=== PATIENT | male | born 1970 | race Caucasian/White ===

== ENCOUNTER 2018-07-16 21:52 | Inpatient (IN) | payer OTHER ==
[~2018-07-16] VITALS: Ht 160 cm; Wt 56.7 kg
[2018-07-16 21:52] VITALS: BP 70/37
--- NOTE | 2018-07-16 21:52 | NUR ---
[facility] IN [facility] TO BED #10.
[2018-07-16] MEDS ORDERED: NACL 0.9% 1,000 ML IV ONE ×2 (21:53→23:15)
--- NOTE | 2018-07-16 21:53 | NUR ---
PT PRESENTED ER WITH C/O PAIN, BODY ACHES X 1 DAY. PT STATED HE HAD SYNCOPE EPISODE DURING DIALYIS TODAY. PT HAS GENERAL WEAKNESS AND IS SLOWER THAN NORMAL PER FAMILY. PT HAS A SHUNT ON RIGHT LEG. AND OLD SHUNT ON THE LEFT ARM. PT HAS A TEMP OF 100.0 AT THIS TIME. 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 PT IS A/O X 4. PT HAS [place]. PT IS INCONTINENT OF STOOL AND IS ANURIC. PAIN LEVEL IS 10/10 AT THIS TIME. SKIN IS PINK/WARM/DRY; VSS; PATIENT POSITIONED FOR COMFORT; HOB ELEVATED; BEDRAILS UP X2; BED DOWN. ER MD MADE AWARE OF PT STATUS.
[2018-07-16] MEDS ORDERED: ACETAMINOPHEN 325 MG TAB PO ONE (21:55)
--- NOTE | 2018-07-16 22:05 | NUR ---
PT SITTING UP IN BED, MONITORING TEMP AND VITALS STABLE. FAMILY AT BEDSIDE.
[2018-07-16 22:46] LABS: HEMATOCRIT 28.7 % (36-52); HEMOGLOBIN 9.6 g/dL (12.0-18.0); MEAN CORPUSCULAR HEMOGLOBIN 32 pg (27-31); MEAN CORPUSCULAR HGB CONC 34 g/dL (33-37); MEAN CORPUSCULAR VOLUME 95.4 fL (80-94); RED CELL DISTRIBUTION WIDTH 16.4 % (11.6-13.7); WHITE BLOOD COUNT (AUTO) 7.7 K/uL (4.8-10.8)
[2018-07-16 22:52] LABS: PROTHROMBIN TIME 10.9 secs (10.8-13.4)
[2018-07-16 22:53] LABS: ALBUMIN 2.8 g/dL (3.4-5.0); CARBON DIOXIDE 25.9 mmol/L (21-32); TOTAL BILIRUBIN 1.1 mg/dL (0.0-1.0)
[2018-07-16 23:01] LABS: LYMPHOCYTES % (MANUAL) 1 % (20-46); MONOCYTES % (MANUAL) 1 % (5-12); PLATELET COUNT (AUTO) 53 K/uL (140-450)
[2018-07-16 23:07] LABS: POTASSIUM 2.9 mmol/L (3.5-5.1)
[2018-07-16] MEDS ORDERED: PIPERACILLIN/TAZOBACTAM 3.375 GM in DEXTROSE 5% 50 ML IV ONE (23:10)
--- NOTE | 2018-07-16 23:20 | NUR ---
FLU CULTURE TAKEN. SENT TO LAB.
[2018-07-16] MEDS ORDERED: PIPERACILLIN/TAZOBACTAM 3.375 GM VIAL IV ONE (23:32)
--- NOTE | 2018-07-16 23:40 | NUR ---
PT HAD A BM, INCONTINENT. DIAPER WAS PUT ON PT PER REQUEST. PT TOLERATED WELL. SKIN INTACT. ER MADE KNOWN.
[2018-07-17] VITALS (57 sets, daily range): BP systolic 54–169; BP diastolic 21–99
--- NOTE | 2018-07-17 | NUR ---
PT SITTING UP IN BED, BP IS 75/20 AT THIS TIME. ER MD NOTIFED. FAMILY STATES PT BASELINE BP IS 80/40S.
[2018-07-17] MEDS ORDERED: VANCOMYCIN 1GM/DEXT 5% PREMIX 200 ML IV ONE (00:30)
[2018-07-17] MEDS ORDERED: fentaNYL 0.05 MG/ML VIAL IVP ONE (00:30)
[2018-07-17] MEDS ORDERED: VANCOMYCIN PER PHARMACY MC PRN ×2 (00:30→14:45)
[2018-07-17] MEDS ORDERED: NOREPINEPHRINE 8 MG in DEXTROSE 5% 250 ML IV PRN (00:30)
--- NOTE | 2018-07-17 00:38 | NUR ---
LEVOPHED AND VANCO NOT AVAILABLE IN ER [place], DARNELL SUP. NOTIFIED, WILL FOLLOW UP.
--- NOTE | 2018-07-17 00:40 | NUR ---
MONITORING BP, PT BP IS 80/41 AT THIS TIME. MEDICATIONS LEVOPHED IS IN, PT TOLERATED WELL.
[2018-07-17] MEDS ORDERED: NOREPINEPHRINE 4 MG/4 ML VIAL IV ONE ×2 (00:44→00:52)
[2018-07-17] MEDS ORDERED: VANCOMYCIN 1,000 MG VIAL ONE (00:49)
--- NOTE | 2018-07-17 00:54 | NUR ---
SPOKE TO ERICA FROM [facility] REGARDING ADMIT. PENDING ADMIT FOR PT. ER MADE AWARE
--- NOTE | 2018-07-17 00:59 | NUR ---
PT SITTING UP IN BED, BP IS 167/87, TITRATE LEVOPHED TO 2 MCQ/MIN. PT TOLERATED WELL. ER MD MADE KNOWN.
--- NOTE | 2018-07-17 01:04 | NUR ---
PT SITTING UP IN BED, BP AT 148/82 AT THIS TIME, ER MD MADE KNOWN WAITING FOR INSURANCE TO TRANSFER TO ICU.
--- NOTE | 2018-07-17 01:15 | NUR ---
PT DAUGHTER GARY MOORE [phone], [facility] [phone]
[2018-07-17] MEDS ORDERED: VANCOMYCIN 1,000 MG in DEXTROSE 5% 250 ML IV ONE (01:40)
[2018-07-17] MEDS ORDERED: ACETAMINOPHEN 325 MG TAB PO PRN (02:15)
[2018-07-17] MEDS ORDERED: DOCUSATE SODIUM 100 MG GELCAP PO PRN (02:15)
[2018-07-17] MEDS ORDERED: ONDANSETRON 4 MG/2 ML VIAL IM/IVP PRN (02:15)
[2018-07-17] MEDS ORDERED: NACL 0.9% 500 ML IV ONE (02:30)
--- NOTE | 2018-07-17 02:40 | NUR ---
Pt report given to CELIA KWOK. Transfer of care at this time.VITALS STABLE.
--- NOTE | 2018-07-17 02:40 | NUR ---
Patient will be admitted to care of DR. LARA. Admited to ICU. Will go to room2. Belongings list completed. Report to CELIA KWOK. VSS
[2018-07-17] MEDS ORDERED: METR250T2 PO (02:42)
[2018-07-17] MEDS ORDERED: KEP500 PO (02:42)
[2018-07-17] MEDS ORDERED: ONDA4TAB PO (02:42)
[2018-07-17] MEDS ORDERED: ZOLP5TAB1 PO (02:44)
--- NOTE | 2018-07-17 02:45 | NUR ---
RECEIVED PT FROM ER VIA [facility].MONITORS ATTACHED.SR ON MONITOR NOTED.WITH 02NC AT 2LPM.NO SOB NOTED.PT REFUSED O2; REMOVED.SATURATION 98%.W/PERIPHERAL IV TO LT EJ G20. INTACT INFUSING LEVOPHED 4MG IN 250ML D5W AT 2MCG/MIN(7.5ML/HR);BP 130/77; LEVOPHED ON HOLD AT THIS TIME.DR MONACO AT BEDSIDE AND AWARE.PERIPHERAL IV TO RT F/A G20 INFUSING ORDERED IVF.W/HEMODIALYSIS CATHETER TO RT FEMORAL, DRY AND INTACT DRESSING.W/LLE BKA; STUMP WITH OPEN WOUND,WOUND CULTURE SENT TO LAB, DRESSING DONE.PHOTO TAKEN.W/RLE AKA; STUMP ALSO HAS SMALL OPEN WOUND, SPEC SENT TO LAB FOR CULTURE.DRESSING AND PHOTO DONE.W/EXCORIATION TO PERINEAL AND SACROCOCCYGEAL AREA.PT HAS CHRONIC DIARRHEA.LT HAND W/THUMB AND RING FINGER AMPUTATION AND RT HAND INDEX, MIDDLE AND RING FINGER AMPUTEE AND LITTLE FINGER CONTRACTED.DENIES PAIN. Addendum: 07/17/18 at 0629 by Ashley Isaac RN BS CHECKED 173
[2018-07-17] MEDS ORDERED: PRO5 PO (02:47)
[2018-07-17] MEDS ORDERED: ATRO1TAB PO (02:47)
--- NOTE | 2018-07-17 03:15 | NUR ---
PT VERBALIZED HE IS HUNGRY; FOOD GIVEN.ATE 100%.PT ON RENAL DIET
[2018-07-17 03:29] LABS: FREE T4 (FREE THYROXINE) 1.27 ng/dL (0.76-1.46); MAGNESIUM 1.2 mg/dL (1.8-2.4); THYROID STIMULATING HORMONE 6.77 uIU/mL (0.34-3.74)
[2018-07-17] MEDS: NACL 0.9% 1,000 ML IV SCH ×3 (04:00→20:05)
[2018-07-17] MEDS ORDERED: MECLIZINE 25 MG TAB PO PRN (04:00)
[2018-07-17] MEDS ORDERED: KCL 20 MEQ/WATER INJ PREMIX 100 ML IV ONE (04:30)
[2018-07-17] MEDS ORDERED: MAG SULF 2000 MG/WATER PREMIX 50 ML IV ONE (04:30)
--- NOTE | 2018-07-17 05:00 | NUR ---
BM NOTED.LARGE AMT OF LOOSE BROWNISH STOOL; MORNING CARE DONE.PT REPOSITIONED FOR COMFORT.DENIES MARISSA.STILL ON ROOM AIR.TOLERATING.
--- NOTE | 2018-07-17 05:46 | NUR ---
PHONE CALL TO AFTER HOURS PHARMACY RE; [facility]; GIVEN IN ER AT 2352, FREQUENCY Q8HRS, SPOKE WITH PHARMACIST KAREN, HE SAID OK TO GIVE 5 AM DOSE; AWAITING LUNCH TRUCK DRIVER FOR THE ANTIBIOTIC.
[2018-07-17] MEDS ORDERED: PIPERACILLIN/TAZOBACTAM 2.25 GM VIAL IV ONE (06:00)
[2018-07-17] MEDS: PIPER/TAZO 2.25GM/D5W PREMIX 50 ML IV SCH ×3 (06:04→20:05)
--- NOTE | 2018-07-17 06:15 | NUR ---
PT TO CT FOR CT OF HEAD WITH RN BEVERLY WHELAN AND AUXILIARY EQUIPMENT OPERATOR.MONITORS ATTACHED.NO SOB ON ROOM AIR
[2018-07-17] MEDS ORDERED: DEXTROSE 50% 50 ML SYR IVP PRN (06:30)
--- NOTE | 2018-07-17 06:31 | NUR ---
PT BACK FROM CT IN STABLE CONDITION.BEDSIDE MONITORS REATTACHED.NO INCIDENT
--- NOTE | 2018-07-17 07:15 | NUR ---
REPORT GIVEN TO TAMIKO KWOK.PT AWAKE ALERT AND ORIENTED.
--- NOTE | 2018-07-17 07:15 | NUR ---
RECEIVED REPORT FROM [facility] NURSE FOR CONTINUITY OF CARE. PATIENT IS AWAKE, ALERT AND RESPONSIVE. ABLE TO MAKE HIS NEEDS KNOWN. ABLE TO FOLLOW SIMPLE COMMANDS. LEFT EJ AND RIGHT HAND PERIPHERAL IV PATENT AND INTACT. SKIN WARM TO TOUCH WNL, RIGHT AKA, LEFT BKA, RIGHT AND LEFT HAND DIGITS AMPUTATION, NO EDEMA NOTED. Addendum: 07/17/18 at 1140 by Anusha Abdalla RN CONTINUATION FOR 714 DOCUMENTATION: RIGHT HAND IST, 2ND AND 3RD DIGITS AND LEFT HAND 1ST AND 2ND DIGITS AMPUTATION. ANURIC. RIGHT FEMORAL DIALYSIS CATHETER PATENT AND INTACT. ON ROOM AIR. CALL LIGHT WITHIN REACH, BED AT LOWEST POSSIBLE POSITION. WILL CONTINUE TO MONITOR PATIENT.
[2018-07-17] MEDS ORDERED: BLOOD GLUCOSE MONITORING 1 DEV DEV FS SCH (07:30)
--- NOTE | 2018-07-17 07:55 | NUR ---
DR LARA AND GROUP ROUNDING ON THE PATIENT. WILL FOLLOW UP WITH ORDERS.
[2018-07-17] MEDS: NOREPINEPHRINE 4 MG in DEXTROSE 5% 250 ML IV PRN ×2 (08:01→20:44)
--- NOTE | 2018-07-17 08:01 | NUR ---
BP 61/27 MMHG. RECYCLED 3 TIMES. LEVOPHED RESTARTED AT 5 MCG/MIN. DR QUINN MADE AWARE. WITH ORDERS TO PLACE A CENTRAL LINE. CALLED PATIENT'S NIECE LEFT A MESSAGE. WILL AWAIT FOR CALL BACK. DR. QUINN AWARE.
--- NOTE | 2018-07-17 08:35 | NUR ---
WITH ORDERS FOR CENTRAL PLACEMENT. WILL HAVE KIT READY AT BEDSIDE. NO CALL BACK FROM NIECE STILL. WILL CALL AGAIN.
[2018-07-17] MEDS ORDERED: LORazepam 2 MG/ML VIAL IVP SCH (08:40)
--- NOTE | 2018-07-17 08:46 | NUR ---
PATIENT HAS BEEN SCREENED AND CATEGORIZED HIGH NUTRITION RISK. PATIENT WILL BE SEEN WITHIN 1-2 DAYS OF ADMISSION. 07/17/18-07/18/[address]
[2018-07-17] MEDS: SODIUM PHOS / POTASSIUM PHOS 1 PKT PDR PO SCH ×2 (09:00→20:04)
[2018-07-17] MEDS ORDERED: MIDODRINE 5 MG TAB PO SCH (09:00)
[2018-07-17] MEDS: levETIRAcetam 500 MG TAB PO SCH ×2 (09:00→20:04)
[2018-07-17] MEDS ORDERED: Z-GUARD PASTE TP PRN (09:00)
--- NOTE | 2018-07-17 09:05 | NUR ---
WOUND CARE EVALUATION PENDING. PT IS ON PROCEDURE WITH DR. QUINN.
--- NOTE | 2018-07-17 09:15 | NUR ---
NO CALL BACK FROM PATIENT'S NIECE STILL, DR QUINN MADE AWARE. SPOKE TO PATIENT IF HE IS ABLE TO SIGN CONSENT, HE STATED "I CAN'T SEE, MY NIECE CAN SIGN THE CONSENT". WILL PERFORM EMERGENT CENTRAL LINE PLACEMENT. PROCEDURE EXPLAINED TO PATIENT BY DR. QUINN, PATIENT ABLE TO VERBALIZE UNDERSTANDING BY STATING "I'M HERE, JUST DO WHATEVER YOU WANT TO DO."
[2018-07-17] MEDS: HYDROmorphone 1 MG/ML AMP IVP SCH ×2 (09:28→10:08)
--- NOTE | 2018-07-17 09:30 | NUR ---
CENTRAL LINE PLACEMENT UNDERGOING AT THIS TIME. TIMEOUT PERFORMED PRIOR TO PROCEDURE.
[2018-07-17] MEDS ORDERED: HYDROmorphone 1 MG/ML AMP IVP SCH ×2 (10:00→11:40)
--- NOTE | 2018-07-17 10:54 | NUR ---
RE-VISIT PT. PT IS STILL ON PROCEDURE WITH .
[2018-07-17] MEDS ORDERED: HYDROmorphone 1 MG/ML AMP ONE (11:17)
[2018-07-17] MEDS: BLOOD GLUCOSE MONITORING 1 DEV DEV FS SCH ×3 (11:30→21:00)
--- NOTE | 2018-07-17 11:30 | NUR ---
CENTRAL LINE PLACEMENT DONE, PATIENT TOLERATED PROCEDURE WELL.
--- NOTE | 2018-07-17 11:45 | NUR ---
X RAY AT BEDSIDE FOR CENTRAL LINE PLACEMENT VERIFICATION. PATIENT TOLERATED PROCEDURE WELL.
[2018-07-17] MEDS: Z-GUARD PASTE TP SCH (13:00)
[2018-07-17] MEDS ORDERED: HUMSLIDE SUBQ (13:40)
--- NOTE | 2018-07-17 13:40 | NUR ---
DR. QUINN MADE AWARE THAT MORNING MEDS WAS NOT GIVEN DUE TO CENTRAL LINE PLACEMENT PROCEDURE.
[2018-07-17] MEDS: MIDODRINE 5 MG TAB PO SCH ×2 (13:56→18:07)
[2018-07-17] MEDS: INSULIN LISPRO SLIDING SCALE 100 UNITS/ML VIAL SUBQ PRN ×2 (14:01→17:30)
--- NOTE | 2018-07-17 14:46 | NUR ---
07/17/18 RD INITIAL ASSESSMENT COMPLETED PLEASE REFER TO NUTRITION ASSESSMENT UNDER CARE ACTIVITY FOR ESTIMATED NUTRITIONAL NEEDS. 1. CONTINUE RENAL, CCHO 60 GM DIET WITH NEPRO CARB STEADY TOLERATED 2. RECOMMEND AMANDA SUPPLEMENT QD 3. PROVIDED NUTRITION EDUCATION FOR ESRD. 4. RD TO FOLLOW-UP 3-5 DAYS, MODERATE RISK ASHER HERNÁNDEZ RD
--- NOTE | 2018-07-17 19:20 | NUR ---
REPORT GIVEN TO INCOMING SHIFT FOR CONTINUITY OF CARE. PATIENT IN STABLE CONDITION.
--- NOTE | 2018-07-17 19:23 | NUR ---
RECEIVED REPORT FROM AM SHIFT. PT AO X4. HARD OF HEARING AND VISIONS. RESPONDS TO VERBAL AND TACTILE STIMULI. ABLE TO MAKE NEEDS KNOW. LUNG SOUNDS CLEAR. ON ROOM AIR. RENAL DIET. ABD SOFT NONDISTENDED. BS ACTIVE X [address]CT[address] BAG IN PL[address]. PT ANURIC. HD JANAEE SERGIO SAT TO L AV SHUNT. SINUS RHYTHM ON MONITOR. R FA IV SITE 20 G. SITE INTACT. LEFT IJ PICC SITE INTACT. ON LEVOPHED 3MCG/KG/MIN. RIGHT HAND DIGITS AMPUTATED. RIGHT BKA. LEFT AKA NOTED. BED IN LOWEST POSITION. CALL LIGHT WITH REACH. SIDE RAILS UP X 4. WILL CONTINUE TO MONITOR.
--- NOTE | 2018-07-17 19:30 | NUR ---
DR. MONACO AT BEDSIDE AT THIS TIME. UPDATED ON PATIENT'S CONDITION.
--- NOTE | 2018-07-17 19:30 | NUR ---
RECEIVED RESULT FOR US VENOUS BLE AT [address] INGE MONACO (RESIDENT) AT 1926, NO NEW ORDER RECEIVED.
[2018-07-17 19:36] LABS: ANION GAP 14.7 (8-16); CARBON DIOXIDE 24.6 mmol/L (21-32); POTASSIUM 3.3 mmol/L (3.5-5.1)
[2018-07-17 19:44] LABS: CREATININE 4.7 mg/dL (0.7-1.3)
[2018-07-17 20:07] LABS: HEMATOCRIT 30.5 % (36-52); HEMOGLOBIN 9.8 g/dL (12.0-18.0); MEAN CORPUSCULAR HEMOGLOBIN 31 pg (27-31); MEAN CORPUSCULAR HGB CONC 32 g/dL (33-37); MEAN CORPUSCULAR VOLUME 97.2 fL (80-94); PLATELET COUNT (AUTO) 71 K/uL (140-450); RED BLOOD CELL COUNT(AUTO) 3.14 MIL/uL (4.20-6.10); RED CELL DISTRIBUTION WIDTH 17.1 % (11.6-13.7); WHITE BLOOD COUNT (AUTO) 22.5 K/uL (4.8-10.8)
--- NOTE | 2018-07-17 20:12 | NUR ---
TITRATED DOWN LEVOPHED 4MCG AT THIS TIME
[2018-07-17 20:55] LABS: EOSINOPHILS % (MANUAL) 1 % (0-4); LYMPHOCYTES % (MANUAL) 9 % (20-46); MONOCYTES % (MANUAL) 1 % (5-12)
[2018-07-17] MEDS ORDERED: ZOLPIDEM 5 MG TAB PO PRN (21:00)
--- NOTE | 2018-07-17 22:14 | NUR ---
PT DISLODGED RECTAL TUBE AT THIS TIME. NEW ONE REINSERTED.
--- NOTE | 2018-07-17 23:17 | NUR ---
TITRATED DOWN LEVOPHED TO 2MCG. NO SIGNS OF ACUTE DISTRESS AT THIS TIME
[2018-07-18] VITALS (67 sets, daily range): BP systolic 70–156; BP diastolic 34–99
--- NOTE | 2018-07-18 00:18 | NUR ---
TITRATED LEVOPHED TO 1MCG. NO SIGNS OF ACUTE DISTRESS AT THIS TIME
--- NOTE | 2018-07-18 00:25 | NUR ---
PT HAD LARGE BM AT THIS TIME. STOOL LOOSE. RECTAL BAG DISLODGED.
--- NOTE | 2018-07-18 00:42 | NUR ---
SPOKE WITH BESSIE VEGA AND UPDATED ON PT'S CURRENT CONDITION. WILL UPDATE WHEN ANY ABRUPT CHANGES OCCUR.
[2018-07-18] MEDS ORDERED: NOREPINEPHRINE 4 MG/4 ML VIAL IV ONE (01:12)
[2018-07-18] MEDS: NOREPINEPHRINE 4 MG in DEXTROSE 5% 250 ML IV PRN (01:14)
--- NOTE | 2018-07-18 01:36 | NUR ---
PT DISLODGED RECTAL TUBE AT THIS TIME. PT REFUSES RECTAL TUBE IF REINSERTED.
--- NOTE | 2018-07-18 03:55 | NUR ---
TITRATED DOWN TO LEVOPHED 1MCG = 3.375ML/HR
[2018-07-18] MEDS: PIPER/TAZO 2.25GM/D5W PREMIX 50 ML IV SCH (04:30)
--- NOTE | 2018-07-18 05:37 | NUR ---
SPO2 NOT READING ON MONITOR. BORROWED PORTABLE MONITOR FROM RT. RESP 17 SPO2 100% ON ROOM AIR AT THIS TIME.
--- NOTE | 2018-07-18 06:09 | NUR ---
SPOKE WITH ELAN BURROUGHS REGARDING DIALYSIS TODAY.
--- NOTE | 2018-07-18 06:23 | NUR ---
DR. QUINN AT BEDSIDE AT THIS TIME. UPDATED ON PTS CURRENT CONDITION. WILL CONTINUE TO FOLLOW UP ANY ADDITIONAL ORDERS.
[2018-07-18] MEDS: BLOOD GLUCOSE MONITORING 1 DEV DEV FS SCH ×4 (06:33→20:29)
[2018-07-18 06:57] LABS: ANION GAP 14.9 (8-16); CARBON DIOXIDE 23.6 mmol/L (21-32); POTASSIUM 3.5 mmol/L (3.5-5.1)
[2018-07-18 07:00] LABS: CREATININE 5.1 mg/dL (0.7-1.3)
--- NOTE | 2018-07-18 07:24 | NUR ---
DR. IRBY NOTIFIED OF CREATINE 5.1. WILL FOLLOW UP ANY ADDITIONAL ORDERS.
--- NOTE | 2018-07-18 07:25 | NUR ---
ENDORSED CARE TO INCOMING SHIFT FOR CONTINUITY OF CARE. PT IN STABLE CONDITION.
--- NOTE | 2018-07-18 07:26 | NUR ---
RECEIVED REPORT FROM BOOKKEEPING TEACHER NURSE AT BEDSIDE, PT IS AAO X4, BLURRED VISION AND [place] NOTED, ABLE TO FOLLOW COMMANDS AND MAKE NEEDS KNOWN. VSS, DENIES PAIN, NO S/S OF DISTRESS, LUNG SOUNDS CLEAR JINNY, ON RA, O2 100%. CENTRAL LINE TO LIJ, TLC, PATENT, RUNNING NS AT 100ML/HR, LEVOPHED 1MCG/MIN. DENIES CHEST PAIN, SR ON BRIQUETTE MOLDER, SOFT ABDOMEN WITH ACTIVE BOWEL SOUNDS, ON RENAL DIET. ANURIC, DIARRHEA NOTED, ON HD (TTS) OLD AV SHUNT TO LEFT ARM, QUNTON CATH TO RIGHT FEMORAL, COVERED WITH DRESSING, IV SITE TO RIGHT FA 20 G, PATENT AND SL. SKIN IS WARM AND DRY TO TOUCH, OPEN WOUND PRESENT (SEE WOUND ASSESSMENT), RIGHT HAND 2ND AND 3RD DIGITS AMPUTATED AND LEFT HAND THUMB AMPUTATED NOTED. RIGHT BKA. LEFT AKA NOTED. EXPLAINED POC TO PATIENT, PT VERBALIZED UNDERSTANDING, SAFETY MEASURE IN PLACE, CALL LIGHT WITH REACH, WILL CONTINUE TO MONITOR.
[2018-07-18 08:10] LABS: BASOPHILS # (AUTO) 0.1 K/uL (0.00-0.22); BASOPHILS % (AUTO) 0.4 % (0.0-2.0); EOSINOPHILS # (AUTO) 0.1 K/uL (0-0.4); EOSINOPHILS % (AUTO) 0.6 % (0.0-4.0); HEMATOCRIT 29.9 % (36-52); HEMOGLOBIN 9.8 g/dL (12.0-18.0); LYMPHOCYTES # (AUTO) 2.1 K/uL (2.0-11.5); LYMPHOCYTES % (AUTO) 11.6 % (20.5-51.1); MEAN CORPUSCULAR HEMOGLOBIN 32 pg (27-31); MEAN CORPUSCULAR HGB CONC 33 g/dL (33-37); MEAN CORPUSCULAR VOLUME 97.9 fL (80-94); MONOCYTES # (AUTO) 0.8 K/uL (0.8-1.0); MONOCYTES % (AUTO) 4.4 % (1.7-9.3); NEUTROPHILS # (AUTO) 15.1 K/uL (1.8-7.7); PLATELET COUNT (AUTO) 65 K/uL (140-450); RED BLOOD CELL COUNT(AUTO) 3.06 MIL/uL (4.20-6.10); WHITE BLOOD COUNT (AUTO) 18.2 K/uL (4.8-10.8)
[2018-07-18 08:24] LABS: T4 (THYROXINE) 7.7 ug/dL (4.5-12.0)
[2018-07-18] MEDS: MIDODRINE 5 MG TAB PO SCH ×3 (08:39→17:16)
[2018-07-18] MEDS: levETIRAcetam 500 MG TAB PO SCH ×2 (08:40→20:43)
[2018-07-18] MEDS: NACL 0.9% 1,000 ML IV SCH ×2 (08:40→17:19)
[2018-07-18] MEDS: SODIUM PHOS / POTASSIUM PHOS 1 PKT PDR PO SCH ×2 (08:40→20:42)
--- NOTE | 2018-07-18 09:00 | NUR ---
SCHEDULED MEDICATION GIVEN, PT IS ABLE TO SWALLOW PILLS WHOLE, MEDIATION INDICATION AND SIDE EFFECTS EXPLAINED, PT VERBALIZED UNDERSTANDING IT.
[2018-07-18] MEDS ORDERED: NOREPINEPHRINE 4 MG in DEXTROSE 5% 250 ML IV PRN (09:20)
--- NOTE | 2018-07-18 09:27 | NUR ---
DR. GUY CAME IN TO SEE PT AT BEDSIDE, STATED IT IS OK TO STOP LEVOPHED WHEN SBP IS ABOVE 80.
[2018-07-18 09:31] LABS: PHOSPHORUS 4.1 mg/dL (2.5-4.9)
--- NOTE | 2018-07-18 11:27 | NUR ---
HD CONSENT OBTAINED, PT IS ABLE TO SIGN THE CONSENT BY HIMSELF AT THIS TIME.
--- NOTE | 2018-07-18 11:28 | NUR ---
HD NURSE AT BEDSIDE, WILL STARTED HD.
[2018-07-18] MEDS ORDERED: ALBUMIN HUMAN 25% 100 ML IV SCH (12:00)
--- NOTE | 2018-07-18 12:00 | NUR ---
STILL ON HD, NO S/S OF DISTRESS, VSS, OFFERED LUNCH, PT TOLERATED WELL.
[2018-07-18] MEDS ORDERED: MEROPENEM 1,000 MG in NACL 0.9% 100 ML IV SCH (13:00)
--- NOTE | 2018-07-18 13:00 | NUR ---
WOUND CARE PROVIDED, JACQUE CARE AND PM CARE PROVIDED, STOOL SAMPLE COLLECTED FOR C-DIFF ORDERED.
[2018-07-18] MEDS: Z-GUARD PASTE TP SCH (13:16)
--- NOTE | 2018-07-18 14:00 | NUR ---
PT IS ASLEEP IN BED, STILL ON HD, LOW BP 84/51, NO S/S OF DISTRESS.
--- NOTE | 2018-07-18 15:00 | NUR ---
HD COMPLETED, NO OUTPUT AT THIS TIME PER HD NURSE.
[2018-07-18] MEDS: MEROPENEM 500 MG in NACL 0.9% 50 ML IV SCH (15:03)
[2018-07-18] MEDS: HYDROcodone/APAP 7.5/325 MG 1 TAB PO PRN ×2 (15:28→23:40)
[2018-07-18] MEDS ORDERED: VANCOMYCIN HCL 750 MG in DEXTROSE 5% 250 ML IV SCH (16:00)
--- NOTE | 2018-07-18 16:00 | NUR ---
PT IS RESTING IN BED, DENIES PAIN, NO S/S OF DISTRESS, PM CARE PROVIDED, POSITION CHANGED FOR COMFORT.
--- NOTE | 2018-07-18 17:00 | NUR ---
PT'S BP LOW 70/44, PT STATED COLD, TEMP 100.4F, DR. ORTIZ MADE AWARE, RESTARTED LEVOPHED DRIP, TYLENOL GIVEN FOR FEVER.
[2018-07-18] MEDS: INSULIN LISPRO SLIDING SCALE 100 UNITS/ML VIAL SUBQ PRN (17:20)
[2018-07-18 18:43] LABS: BASOPHILS % (AUTO) 0.2 % (0.0-2.0); EOSINOPHILS % (AUTO) 0.5 % (0.0-4.0); HEMATOCRIT 24.3 % (36-52); LYMPHOCYTES # (AUTO) 0.2 K/uL (2.0-11.5); LYMPHOCYTES % (AUTO) 2.7 % (20.5-51.1); MEAN CORPUSCULAR HEMOGLOBIN 32 pg (27-31); MEAN CORPUSCULAR HGB CONC 33 g/dL (33-37); MEAN CORPUSCULAR VOLUME 96.1 fL (80-94); MONOCYTES # (AUTO) 0.1 K/uL (0.8-1.0); MONOCYTES % (AUTO) 1.5 % (1.7-9.3); NEUTROPHILS # (AUTO) 7.5 K/uL (1.8-7.7); NEUTROPHILS % (AUTO) 95.1 % (42.2-75.2); RED BLOOD CELL COUNT(AUTO) 2.53 MIL/uL (4.20-6.10); RED CELL DISTRIBUTION WIDTH 16.7 % (11.6-13.7); WHITE BLOOD COUNT (AUTO) 7.9 K/uL (4.8-10.8)
[2018-07-18 18:45] LABS: PLATELET COUNT (AUTO) 50 K/uL (140-450)
--- NOTE | 2018-07-18 19:28 | NUR ---
REPORT GIVEN TO MANUFACTURING MANAGEMENT ASSOCIATE NURSE FOR CONTINUE OF CARE, PT IS IN STABLE CONDITION AT THIS TIME.
--- NOTE | 2018-07-18 19:30 | NUR ---
PT FAMILY MEMBER, GARY ENGEL (NIECE) AT BEDSIDE TO SEE PT.
--- NOTE | 2018-07-18 19:30 | NUR ---
RECEIVED REPORT FROM MORNING SHIFT RNGIBRAN, FOR CONTINUITY OF CARE. PT IS IN STABLE CONDIION AT THIS TIME. AFEBRILE, WITH TEMP OF 99.4. BP 119/65, HR=95, O2 SAT = 97%, RR=18.PT IS AAO4 ABLE TO MAKE NEED KNOWN AND RESPOND TO COMMANDS. NKA, ON ROOM AIR, SR ON TREE TAPPING LABORER. LUNG SOUNDS CLEAR ON BILATERAL UPPER/LOWER LOBES. ON RENAL DIET, PT ATE 100% DINNER PER DAY SHIFT. BOWEL SOUND HYPOACTIVE, PT DENIES NAUSEA. NO GARCIA IN PLACE, PT IS ANURIC, DIALYSIS RECEIVED DURING DAY SHIFT, RIGHT FEMORAL CATHETER IN PLACE/INTACT. LEFT IJ INFUSING 100ML/HR NORMAL SALINE, AND 2MCG/MIN LEVOHPED DRIP INFUSING. SKIN IS NON INTACT: RIGHT BKA, LEFT AKA, RIGHT SECOND AND THIRD FINGER AMUPATION, AND LEFT THUMB AMPUTATION. GAUZE WRAPPED ON LEFT STUMP, NO DRAINAGE NOTED. DERMATITIS NOTED ON BUTTOCKS/COCCYX AREA. PATIENT RATED PAIN 7/10, BUT DOES NOT WANT TO RECEIVE PAIN MEDICATION AT THIS TIME, WOULD PREFER TO TAKE ONE BEFORE HE GOES TO SLEEP. FALL RISK PRECAUTIONS MAINTAINED, CALL LIGHT WITHIN REACH, SIDE RAILS UP X3, BED IN LOWEST POSITION.
--- NOTE | 2018-07-18 21:15 | NUR ---
DR. MONACO AT BEDSIDE TO SEE PT. UPDATED ON PT CONDITION. PT HAD SMALL BOWEL MOVEMENT, SMEARED AND GREEN IN COLOR. CLEANSED PERINEAL AREA AND APPLIED HYDRAGUARD CREAM.
--- NOTE | 2018-07-18 21:40 | NUR ---
DR. CADET AT BEDSIDE TO SEE PATIENT. UPDATED ON PT CONDITION, ORDERED THAT ON DAYS PT IS RECEIVING DIALYSIS TO ADMINISTER ANTIBIOTIC AFTER THE DIALYSIS TREATMENT.
--- NOTE | 2018-07-18 21:45 | NUR ---
DC LEVOPHED DRIP BP 152/87.
--- NOTE | 2018-07-18 22:39 | NUR ---
BP 98/57 MAP=71. PT IS SLEEPING AT THIS TIME. HR=68, 02=95, RR=18.
[2018-07-19] VITALS (30 sets, daily range): BP systolic 75–143; BP diastolic 42–84
--- NOTE | 2018-07-19 00:30 | NUR ---
ON LEVOPHED DRIP BP DROPPED 75/48, BP NOW 91/53 MAP=67. Addendum: 07/19/18 at 0041 by Ruby Danielson RN PT IS SLEEPING, APPEARS WITHOUT DISTRESS HR 84, O2 SAT =98-99. Addendum: 07/19/18 at 0122 by Ruby Danielson RN LEVOPHED STARTED AT 2MCG/MIN.
--- NOTE | 2018-07-19 01:04 | NUR ---
BP CURRENTLY 143/72, TITRATED LEVOPHED TO 1MCG/MIN.
--- NOTE | 2018-07-19 01:06 | NUR ---
CALLED DR. MONACO, INFORMED OF DR. CADET'S NEW ORDER TO REMOVE FEMORAL CATHETER. DR. MONACO AWARE, STATED DO NOT REMOVE THE CATHETER PT NEEDS IT FOR DIALYSIS AND CATHETER WILL BE REMOVED AT ANOTHER TIME. WILL CARRY OUT.
--- NOTE | 2018-07-19 01:19 | NUR ---
CALLED DR. MONACO, INFORMED THAT PATIENT BACK ON LEVOPHED DRIP.
--- NOTE | 2018-07-19 04:49 | NUR ---
BED BATH PROVIDED TO PT. MODERATE BM, GREEN-BROWN IN COLOR, FORMED STOOL. PT IS ABLE TO ASSIST IN REPOSITIONING HIMSELF IN BED. HYDRAGUARD APPLIED TO PERINEAL AREA. BP 140/86 WITH 1MCG/MIN OF LEVOPHED INFUSING. 100ML/HR NS INFUSING TO LEFT IJ. PT IS SLEEPING, BUT EASILY AROUSABLE.
[2018-07-19] MEDS: NACL 0.9% 1,000 ML IV SCH ×2 (05:01→14:42)
--- NOTE | 2018-07-19 05:02 | NUR ---
LAB AT BEDSIDE TO COLLECT BLOOD.
--- NOTE | 2018-07-19 05:30 | NUR ---
PROVIDED BEDBATH TO PATIENT, CLEASED PERINEAL AREA, AND Z GUARD APPLIED.
[2018-07-19] MEDS: BLOOD GLUCOSE MONITORING 1 DEV DEV FS SCH ×4 (07:00→21:44)
[2018-07-19 07:09] LABS: CARBON DIOXIDE 28.1 mmol/L (21-32); CREATININE 3.5 mg/dL (0.7-1.3); POTASSIUM 3.1 mmol/L (3.5-5.1)
[2018-07-19 07:10] LABS: BASOPHILS % (AUTO) 0.4 % (0.0-2.0); EOSINOPHILS # (AUTO) 0.2 K/uL (0-0.4); HEMATOCRIT 26.3 % (36-52); HEMOGLOBIN 8.8 g/dL (12.0-18.0); LYMPHOCYTES # (AUTO) 1.7 K/uL (2.0-11.5); MEAN CORPUSCULAR HEMOGLOBIN 33 pg (27-31); MEAN CORPUSCULAR HGB CONC 34 g/dL (33-37); MEAN CORPUSCULAR VOLUME 97.1 fL (80-94); MONOCYTES # (AUTO) 0.6 K/uL (0.8-1.0); MONOCYTES % (AUTO) 6.4 % (1.7-9.3); NEUTROPHILS # (AUTO) 7.3 K/uL (1.8-7.7); NEUTROPHILS % (AUTO) 74.2 % (42.2-75.2); PLATELET COUNT (AUTO) 58 K/uL (140-450); RED BLOOD CELL COUNT(AUTO) 2.71 MIL/uL (4.20-6.10); WHITE BLOOD COUNT (AUTO) 9.8 K/uL (4.8-10.8)
--- NOTE | 2018-07-19 07:10 | NUR ---
RECEIVED REPORT FROM NOC RN FOR CONTINUITY OF CARE. PATIENT IS AWAKE, ALERT AND ORIENTED X4. ABLE TO MAKE HIS NEEDS KNOWN. SKIN WARM TO TOUCH WNL, NO EDEMA, RIGHT AKA, LEFT BKA. RIGHT FEMORAL PERMACATH NOTED, DRESSING DRY AND INTACT. WITH PERIRECTAL AND PERIAREA INCONTINENCE ASSOCIATED DERMATITIS 2/2 TO LOOSE BOWEL MOVEMENTS. OFF LEVOPHED FROM 0545. ON ROOM AIR. LEFT TLC CENTRAL LINE PATENT AND INTACT, DRESSING DRY AND INTACT. BP 98/52 MMHG. CALL LIGHT WITHIN REACH, BED AT LOWEST POSSIBLE POSITION. WILL CONTINUE TO MONITOR PATIENT.
[2018-07-19 07:12] LABS: MAGNESIUM 1.6 mg/dL (1.8-2.4); PHOSPHORUS 2.3 mg/dL (2.5-4.9)
--- NOTE | 2018-07-19 07:15 | NUR ---
PROVIDED BEDSIDE REPORT MORNING SHIFT RNTAMIKO, FOR CONTINUITY OF CARE. ENDORSED NURSE OF LOW BPS AND PT CURRENTLY OFF LEVOPHED DRIP.
--- NOTE | 2018-07-19 08:00 | NUR ---
DR LARA AND GROUP ROUNDING ON THE PATIENT. WILL FOLLOW UP WITH ORDERS.
--- NOTE | 2018-07-19 08:20 | NUR ---
PATIENT HAD LOOSE YELLOW GREENISH STOOLS IN MODERATE AMOUNT. CLEANED AND REPOSITIONED AT THIS TIME.
[2018-07-19] MEDS ORDERED: POTASSIUM CHLORIDE 40 MEQ, LIDOCAINE MPF 1% - 5 mL VIAL 25 MG in NACL 0.9% 250 ML IV SCH (09:00)
[2018-07-19] MEDS: POTASSIUM CHLORIDE 20% 40 MEQ/15 ML UDC GT SCH (09:55)
[2018-07-19] MEDS: levETIRAcetam 500 MG TAB PO SCH ×2 (09:58→21:41)
[2018-07-19] MEDS: ATORVASTATIN 20 MG TAB PO SCH (09:58)
[2018-07-19] MEDS: MIDODRINE 5 MG TAB PO SCH ×3 (09:58→16:38)
[2018-07-19] MEDS: EPOETIN ALFA 10,000 UNITS/ML VIAL SUBQ SCH (09:59)
--- NOTE | 2018-07-19 10:00 | NUR ---
RESTING COMFORTABLY AT THIS TIME. NOT IN ANY DISTRESS
--- NOTE | 2018-07-19 10:30 | NUR ---
PATIENT HAD LOOSE GREENISH YELLOW BOWEL MOVEMENT AT THIS TIME, CLEANED AND REPOSITION.
--- NOTE | 2018-07-19 10:52 | NUR ---
WOUND CARE EVALUATION NOTES: REASON FOR EVALUATION: BILATERAL STUMP WOUNDS SKIN ASSESSMENT DONE ON THIS 47 Y/O MALE PATIENT TO [facility], WITH INITIAL DIAGNOSIS OF LOW BLOOD PRESSURE. ALL ABOVE INFORMATION WAS OBTAINED FROM THE ADMISSION H&P. PATIENT IS AWAKE, ORIENTED TO PERSON, PLACE, DATE AND TIME. SKIN WARM TO TOUCH WNL.PT. STATED THAT HE HAS THE CHRONIC WOUND TO THE STUMPS, IT IS NEVER HEALED. PT ABLE HELP IN TURNING. INITIAL PLAN OF CARE AND PRESSURE PREVENTIVE MEASURES DISCUSSED, ABLE TO VERBALIZE UNDERSTANDING. INTEGUMENTARY: -IAD SACRALCOCCYX, PERIANAL TO BILATERAL MEDIAL THIGHS -LEFT BKA STUMP FULL THICKNESS TISSUE LOSS, 0.5X0.5X0.3CM, WOUND BED IS PALE PINK, MOIST, NO ODOR, AND JACQUE-WOUND SKIN INTACT. -RIGHT AKA STUMP FULL THICKNESS TISSUE LOSS, 1X2 CM WITH DEPTH UTD, WOUND BED IS LIGHT BROWN, MOIST, NO ODOR. WOUND CENTER WITH [place] YELLOWISH HARD TISSUE, POSSIBLE BONE EXPOSED, JACQUE-WOUND SKIN INTACT. RECOMMENDATIONS: -SURGEON TO CONSULT RIGHT STUMP -CLEANSE RIGHT AND LEFT STUMPS WOUNDS WITH NS. PAT DRY, APPLY HYDRAGUARD AND COVER WITH DRY DRESSING QD AND PRN IF SOILING -CLEANSE SACRALCOCCYX, PERIANAL TO BILATERAL MEDIAL THIGHS WITH MILD SOAP AND WATER, PAT DRY, APPLY Z GUARD BIDWC AND PRN WITH SOILING. LEAVE OPEN TO AIR -TURN AND REPOSITION PATIENT Q 2H -ASSESS AND MONITOR SKIN CONDITION DURING POSITION CHANGE -OFFLOAD BILATERAL HEELS BY PLACING PILLOWS UNDER CALVES AT ALL TIMES, UNLESS OTHERWISE CONTRAINDICATED -PRESSURE REDISTRIBUTION SURFACE THERAPY -KEEP SKIN CLEAN AND DRY AT ALL TIMES. RECOMMENDATIONS DISCUSSED WITH PRIMARY RN WILL FOLLOW UP PATIENT Q7 DAYS AND PRN. PLEASE CONTACT WOUND CARE NURSE FOR ANY QUESTIONS AND CHANGES IN SKIN CONDITION. Addendum: 07/19/18 at 1107 by Tay Archuleta RN (Grace) CHANGE HYDRAGUARD TO HYDROGEL -CLEANSE RIGHT AND LEFT STUMPS WOUNDS WITH NS. PAT DRY, APPLY HYDROGEL AND COVER WITH DRY DRESSING QD AND PRN IF SOILING
[2018-07-19] MEDS ORDERED: SKINTEGRITY HYDROGEL TP PRN (11:10)
[2018-07-19] MEDS: SKINTEGRITY HYDROGEL TP SCH (12:54)
[2018-07-19] MEDS: Z-GUARD PASTE TP SCH (12:54)
[2018-07-19] MEDS ORDERED: MAG SULF 2000 MG/WATER PREMIX 50 ML IV ONE (13:45)
--- NOTE | 2018-07-19 14:00 | NUR ---
RESTING COMFORTABLY AT THIS TIME, NOT IN ANY DISTRESS.
[2018-07-19] MEDS: MAGNESIUM SULFATE 1GM in DEXTROSE 5% 100 ML PREMIX IV SCH ×2 (14:27→15:37)
[2018-07-19] MEDS: MEROPENEM 500 MG in NACL 0.9% 50 ML IV SCH (14:36)
--- NOTE | 2018-07-19 19:27 | NUR ---
REPORT GIVEN TO NIGHT RN FOR CONTINUITY OF CARE. PATIENT IN STABLE CONDITION.
--- NOTE | 2018-07-19 19:30 | NUR ---
RECEIVED REPORT FROM MORNING SHIFT RNTAMIKO, FOR CONTINUITY OF CARE. PT IS AAOX4, DENIES PAIN/NAUSEA. ON ROOM AIR. AFEBRILE TEMP 97.7 YZ=615/73, O2 SAT=97, RR=18, HR 58-61. DRESSING DRY/INTACT ON BILATERAL STUMPS. NS INFUSING INTO LEFT IJ AT 50ML/HR. HOB ELEVATED ABOVE 30 DEG. LARGE LOOSE STOOL, DARK GREEN/LIGHT BROWN IN COLOR. CLEANSED PERINEAL AREA AND APPLIED HYDRAGUARD TO AREAS (INCONTINENT DERMATITIS). SKIN IS WARM TO TOUCH/NORMAL IN COLOR. PT ABLE TO ASSIST IN REPOSITIONING HIMSELF IN BED.
--- NOTE | 2018-07-19 21:00 | NUR ---
TRANSFERRED PT TO [facility] UNIT AND GAVE REPORT TO TELEPHONE SALES AGENT RN, IWONA, FOR CONTINUITY OF CARE. PT IS AAOX4, ON ROOM AIR, AND IN STABLE CONDITION AT THIS TIME.
--- NOTE | 2018-07-19 21:00 | NUR ---
PT ARRIVED AT UNIT VIA GURNEY, RECEIVED REPORT FROM ICU NURSE HALLE RN, PT STABLE, NO DISTRESS NOTED, IV ACCESS TO THE R IJ CENTRAL LINE, INFUSING WELL, PATENT, INTACT, PT ON ROOM AIR, NO SOB, INITIAL ASSESSMENT DONE, ALL SAFETY PRECAUTION MET, CALL LIGHT WITHIN REACH, WILL CONTINUE TO MONITOR.
[2018-07-19] MEDS: HYDROcodone/APAP 7.5/325 MG 1 TAB PO PRN (21:41)
--- NOTE | 2018-07-19 21:41 | NUR ---
DUE MEDICATION ADMINISTERED, PT STATED HAVING PAIN TO THE LEG, PAIN MEDICATION ADMINISTERED, PT TOLERATED WELL, NO DISTRESS NOTED, CALL LIGHT WITHIN REACH, WILL CONTINUE TO MONITOR.
--- NOTE | 2018-07-20 00:10 | NUR ---
PT RESTING, NO DISTRESS NOTED, V/S TAKEN, WNL, CALL LIGHT WITHIN REACH, WILL CONTINUE TO MONITOR.
--- NOTE | 2018-07-20 03:41 | NUR ---
PT SLEEPING, NO DISTRESS NOTED, CALL LIGHT WITHIN REACH, WILL CONTINUE TO MONITOR.
[2018-07-20 06:38] LABS: BASOPHILS % (AUTO) 0.9 % (0.0-2.0); EOSINOPHILS # (AUTO) 0.2 K/uL (0-0.4); EOSINOPHILS % (AUTO) 3.7 % (0.0-4.0); HEMATOCRIT 26.7 % (36-52); HEMOGLOBIN 8.7 g/dL (12.0-18.0); LYMPHOCYTES # (AUTO) 1.2 K/uL (2.0-11.5); MEAN CORPUSCULAR HEMOGLOBIN 32 pg (27-31); MEAN CORPUSCULAR HGB CONC 33 g/dL (33-37); MEAN CORPUSCULAR VOLUME 97.9 fL (80-94); MONOCYTES # (AUTO) 0.3 K/uL (0.8-1.0); MONOCYTES % (AUTO) 5.8 % (1.7-9.3); NEUTROPHILS # (AUTO) 3.5 K/uL (1.8-7.7); PLATELET COUNT (AUTO) 70 K/uL (140-450); RED BLOOD CELL COUNT(AUTO) 2.73 MIL/uL (4.20-6.10); RED CELL DISTRIBUTION WIDTH 17.2 % (11.6-13.7); WHITE BLOOD COUNT (AUTO) 5.2 K/uL (4.8-10.8)
[2018-07-20] MEDS: BLOOD GLUCOSE MONITORING 1 DEV DEV FS SCH ×4 (06:43→21:12)
--- NOTE | 2018-07-20 07:30 | NUR ---
ENDORSED PT TO DAY SHIFT NURSE DAVIDSON RN, PT STABLE, NO DISTRESS NOTED, CALL LIGHT WITHIN REACH.
[2018-07-20 07:44] LABS: MAGNESIUM 2.2 mg/dL (1.8-2.4); PHOSPHORUS 2.9 mg/dL (2.5-4.9)
[2018-07-20 08:00] VITALS: BP 96/48
[2018-07-20 08:09] LABS: ANION GAP 11.6 (8-16); CARBON DIOXIDE 26.5 mmol/L (21-32); CREATININE 4.6 mg/dL (0.7-1.3); POTASSIUM 4.1 mmol/L (3.5-5.1)
--- NOTE | 2018-07-20 08:23 | NUR ---
SPOKE WITH DR LELA HERNANDEZ AND RECEIVED HD ORDER FOR TODAY
--- NOTE | 2018-07-20 08:28 | NUR ---
SPOKE WITH ELAN BURROUGHS AND INFORMED HER ABOUT HD ORDER FOR THE PATIENT TODAY
[2018-07-20] MEDS: POTASSIUM CHLORIDE 20% 40 MEQ/15 ML UDC GT SCH (09:24)
[2018-07-20] MEDS: levETIRAcetam 500 MG TAB PO SCH ×2 (09:24→21:11)
[2018-07-20] MEDS: ATORVASTATIN 20 MG TAB PO SCH (09:24)
[2018-07-20] MEDS: MIDODRINE 5 MG TAB PO SCH ×3 (09:24→17:20)
--- NOTE | 2018-07-20 10:15 | NUR ---
PATIENT STARTED HEMODIALYSIS
[2018-07-20 10:25] LABS: LYMPHOCYTES % (AUTO) 22.6 % (20.5-51.1)
[2018-07-20] MEDS ORDERED: ALBUMIN HUMAN 25% 100 ML IV SCH (10:30)
--- NOTE | 2018-07-20 10:43 | NUR ---
ALBUMIN ADMINISTERED BY HD NURSE. BP 93/58 HR 59 O2 SAT 99% . NO S/S OF DISTRESS NOTED AT THIS TIME.
[2018-07-20] MEDS ORDERED: HYDRAGUARD CREAM TP PRN (11:25)
--- NOTE | 2018-07-20 12:37 | NUR ---
HD IN PROGRESS. NO S/S OF DISTRESS NOTED
--- NOTE | 2018-07-20 13:15 | NUR ---
HD DONE. PATIENT AWAKE AND ALERT. NO S/S OF DISTRESS. BP 118/71 HR 62. WILL CONTINUE TO MONITOR
[2018-07-20] MEDS: Z-GUARD PASTE TP SCH (13:41)
[2018-07-20] MEDS: SKINTEGRITY HYDROGEL TP SCH (13:41)
[2018-07-20] MEDS: HYDRAGUARD CREAM TP SCH (13:41)
[2018-07-20] MEDS ORDERED: VANCOMYCIN 1GM/DEXT 5% PREMIX 200 ML IV SCH (14:00)
[2018-07-20] MEDS: CHLORHEXADINE GLUC 2% CLOTH TP SCH (15:37)
[2018-07-20] MEDS: NACL 0.9% 1,000 ML IV SCH (15:37)
[2018-07-20 17:17] VITALS: BP 113/68
[2018-07-20] MEDS: INSULIN LISPRO SLIDING SCALE 100 UNITS/ML VIAL SUBQ PRN ×2 (18:14→21:17)
--- NOTE | 2018-07-20 19:22 | NUR ---
PATIENT REPORT GIVEN AT BEDSIDE. PATIENT ENDORSED IN STABLE CONDITION
--- NOTE | 2018-07-20 19:23 | NUR ---
RECEIVED REPORT FROM DAY SHIFT RN. PT A&OX4. RESPIRATIONS ARE EQUAL AND UNLABORED. PT WITH CENTRAL LINE ON LEFT IJ 3 LUMEN. INFUSING NS AT 10,L. R/L BKA. HAS SHUNT ON LEFT ARM AND RIGHT FEMORAL, PT ON SEIZURE,FALL, ASPIRATION PROTOCOL. PT CONTACT PRECAUTION D/T MRSA OF R STUMP. PLAN OF CARE DISCUSSED WITH PT. PT VERBALIZED UNDERSTANDING. NPO AFTER MIDNIGHT SIGN ON DOOR. CONSENT IS SIGN IN CHART. CALL LIGHT WITHIN REACH. WILL CONTINUE TO MONITOR.
--- NOTE | 2018-07-20 21:11 | NUR ---
DUE MEDICATIONS GIVEN. PT TOLERATED WELL. CALL LIGHT WITHIN REACH. WILL CONTINUE TO MONITOR.
--- NOTE | 2018-07-20 22:20 | NUR ---
PTS BLOOD SUGAR DROPPED TO 25 GAVE DEXTROSE, ORANGE JUICE AND GRAM CRACKERS. RECHECKED BLOOD SUGAR 221. DOCTOR AND CHARGE NURSE AWARE. WILL CONTINUE TO MONITOR.
[2018-07-21] VITALS: BP 116/65
--- NOTE | 2018-07-21 | NUR ---
PT SLEEPING EASILY AROUSABLE. VITAL SIGNS WITHIN NORMAL LIMITS. ALL NEEDS MET AT THIS TIME. CALL LIGHT WITHIN REACH.
[2018-07-21] MEDS: HYDRAGUARD CREAM TP SCH ×2 (01:00→13:00)
--- NOTE | 2018-07-21 03:09 | NUR ---
PT SLEEPING. NO DISTRESS NOTED. SAFETY MEASURES IN PLACE.
--- NOTE | 2018-07-21 05:36 | NUR ---
PTS BLOOD SUGAR IS WITHIN NORMAL LIMITS. CLEANED PT AND CHANGED LINEN. PT TOLERATED WELL. ALL NEEDS MET AT THIS TIME.
[2018-07-21] MEDS: BLOOD GLUCOSE MONITORING 1 DEV DEV FS SCH ×4 (06:11→21:20)
--- NOTE | 2018-07-21 07:10 | NUR ---
ENDORSED PT TO DAY SHIFT RN. PT IN STABLE CONDITION.
--- NOTE | 2018-07-21 07:15 | NUR ---
RECEIVED PATIENT REPORT AT BEDSIDE. PATIENT ASLEEP BUT AROUSABLE. NO S/S OF DISTRESS NOTED. FALL PRECAUTIONS IN PLACE. WILL CONTINUE TO MONITOR
[2018-07-21 07:34] LABS: BASOPHILS % (AUTO) 0.9 % (0.0-2.0); EOSINOPHILS # (AUTO) 0.2 K/uL (0-0.4); EOSINOPHILS % (AUTO) 5.3 % (0.0-4.0); HEMATOCRIT 26.4 % (36-52); HEMOGLOBIN 8.7 g/dL (12.0-18.0); LYMPHOCYTES # (AUTO) 1.6 K/uL (2.0-11.5); MEAN CORPUSCULAR HEMOGLOBIN 32 pg (27-31); MEAN CORPUSCULAR HGB CONC 33 g/dL (33-37); MEAN CORPUSCULAR VOLUME 97.7 fL (80-94); MONOCYTES # (AUTO) 0.3 K/uL (0.8-1.0); MONOCYTES % (AUTO) 6.7 % (1.7-9.3); NEUTROPHILS # (AUTO) 2.3 K/uL (1.8-7.7); NEUTROPHILS % (AUTO) 52.1 % (42.2-75.2); PLATELET COUNT (AUTO) 82 K/uL (140-450); WHITE BLOOD COUNT (AUTO) 4.5 K/uL (4.8-10.8)
[2018-07-21 08:00] VITALS: BP 106/65
[2018-07-21 08:20] LABS: ANION GAP 14.1 (8-16); CARBON DIOXIDE 24.1 mmol/L (21-32); CREATININE 3.8 mg/dL (0.7-1.3); POTASSIUM 4.2 mmol/L (3.5-5.1)
[2018-07-21 08:30] LABS: MAGNESIUM 1.9 mg/dL (1.8-2.4)
[2018-07-21] MEDS: NACL 0.9% 1,000 ML IV SCH (08:40)
[2018-07-21] MEDS: levETIRAcetam 500 MG TAB PO SCH ×2 (09:00→21:18)
[2018-07-21] MEDS: MIDODRINE 5 MG TAB PO SCH ×3 (09:00→17:56)
[2018-07-21] MEDS: POTASSIUM CHLORIDE 20% 40 MEQ/15 ML UDC GT SCH (09:00)
[2018-07-21] MEDS: ATORVASTATIN 20 MG TAB PO SCH (09:00)
[2018-07-21] MEDS: DEXT 5% / NACL 0.45% 1,000 ML IV SCH (10:51)
[2018-07-21] MEDS ORDERED: LIDOCAINE MPF 1% 5mL VIAL INJ SCH (12:00)
[2018-07-21] MEDS: Z-GUARD PASTE TP SCH (13:00)
--- NOTE | 2018-07-21 13:00 | NUR ---
DR PATTON REMOVED RIGHT FEMORAL TUNNELED HEMODIALYSIS CATHETER AT BEDSIDE. PATIENT AWAKE AND ALERT. NO S/S OF DISTRESS NOTED
--- NOTE | 2018-07-21 14:00 | NUR ---
PATIENT AWAKE IN BED, EATING LUNCH. NO S/S OF DISTRESS NOTED
[2018-07-21] MEDS: SKINTEGRITY HYDROGEL TP SCH (14:09)
[2018-07-21] MEDS: CHLORHEXADINE GLUC 2% CLOTH TP SCH (15:44)
[2018-07-21 16:00] VITALS: BP 98/57
--- NOTE | 2018-07-21 19:25 | NUR ---
PATIENT REPORT GIVEN AT BEDSIDE. PATIENT ENDORSED IN STABLE CONDITION
--- NOTE | 2018-07-21 19:26 | NUR ---
RECEIVED REPORT FROM DAY SHIFT RN. PT A&OX4. RESPIRATIONS ARE EQUAL AND UNLABORED. PT WITH CENTRAL LINE ON LEFT IJ 3 LUMEN. INFUSING NS AT 10ML. R AKA L ANASTASIAA. HAS SHUNT ON LEFT ARM AND RIGHT FEMORAL MIGUEL CATH WAS REMOVED TODAY 07/21/18. DRESSING IS CLEAN DRY AND INTACT. PT ON SEIZURE,FALL, ASPIRATION PROTOCOL. PT CONTACT PRECAUTION D/T MRSA OF R STUMP. PLAN OF CARE DISCUSSED WITH PT. PT VERBALIZED UNDERSTANDING. CALL LIGHT WITHIN REACH. WILL CONTINUE TO MONITOR.
--- NOTE | 2018-07-21 21:18 | NUR ---
DUE MEDICATIONS WERE GIVEN. PT TOLERATED WELL. ALL NEEDS MET AT THIS TIME. WILL CONTINUE TO MONITOR. Addendum: 07/22/18 at 0058 by Carlita Thrasher RN BLOOD SUGAR 168 HUMALOG WAS HELD SINCE HIS BLOOD SUGAR DROPPED LAST NIGHT AFTER COVERAGE. WILL CONTINUE TO MONITOR.
[2018-07-21] MEDS: HYDROcodone/APAP 7.5/325 MG 1 TAB PO PRN (21:23)
--- NOTE | 2018-07-22 | NUR ---
VITAL SIGNS ARE WITHIN NORMAL LIMITS. SAFETY MEASURES IN PLACE. WILL CONTINUE TO MONITOR.
[2018-07-22 00:01] VITALS: BP 94/50
[2018-07-22] MEDS: HYDRAGUARD CREAM TP SCH ×2 (01:07→13:00)
--- NOTE | 2018-07-22 02:05 | NUR ---
PT SLEEPING COMFORTABLY IN BED. NO DISTRESS NOTED. RESPIRATIONS ARE EQUAL AND UNLABORED. CALL LIGHT WITHIN REACH. ALL SAFETY MEASURES IN PLACE. WILL CONTINUE TO MONITOR.
--- NOTE | 2018-07-22 03:37 | NUR ---
PT SLEEPING COMFORTABLY IN BED. NO DISTRESS NOTED. CALL LIGHT WITHIN REACH
--- NOTE | 2018-07-22 05:01 | NUR ---
PT SLEEPING COMFORTABLY IN BED. RESPIRATIONS ARE EQUAL AND UNLABORED. SAFETY MEASURES IN PLACE.
[2018-07-22] MEDS: BLOOD GLUCOSE MONITORING 1 DEV DEV FS SCH ×4 (06:03→20:49)
--- NOTE | 2018-07-22 06:44 | NUR ---
BID WRITER CHUN SPOKE WITH . HE WILL PERFORM INSERTION OF NEW HEMODIALYSIS CATHETER TODAY. ORDERS TO KEEP PATIENT NPO.
--- NOTE | 2018-07-22 07:28 | NUR ---
ENDORSED PATIENT TO DAY SHIFT RN. PT IN STABLE CONDITION.
[2018-07-22 07:44] LABS: BASOPHILS % (AUTO) 0.7 % (0.0-2.0); EOSINOPHILS # (AUTO) 0.3 K/uL (0-0.4); EOSINOPHILS % (AUTO) 5.5 % (0.0-4.0); HEMATOCRIT 26.1 % (36-52); HEMOGLOBIN 8.4 g/dL (12.0-18.0); LYMPHOCYTES # (AUTO) 1.9 K/uL (2.0-11.5); MEAN CORPUSCULAR HEMOGLOBIN 32 pg (27-31); MEAN CORPUSCULAR HGB CONC 32 g/dL (33-37); MEAN CORPUSCULAR VOLUME 98.9 fL (80-94); MONOCYTES # (AUTO) 0.3 K/uL (0.8-1.0); MONOCYTES % (AUTO) 6.2 % (1.7-9.3); NEUTROPHILS # (AUTO) 2.7 K/uL (1.8-7.7); NEUTROPHILS % (AUTO) 51.6 % (42.2-75.2); PLATELET COUNT (AUTO) 94 K/uL (140-450); RED BLOOD CELL COUNT(AUTO) 2.64 MIL/uL (4.20-6.10); RED CELL DISTRIBUTION WIDTH 17.9 % (11.6-13.7); WHITE BLOOD COUNT (AUTO) 5.2 K/uL (4.8-10.8)
[2018-07-22 08:00] VITALS: BP 106/61
[2018-07-22] MEDS: ATORVASTATIN 20 MG TAB PO SCH (08:35)
[2018-07-22] MEDS: levETIRAcetam 500 MG TAB PO SCH ×2 (08:36→20:13)
[2018-07-22] MEDS: POTASSIUM CHLORIDE 20% 40 MEQ/15 ML UDC GT SCH (08:36)
[2018-07-22] MEDS: EPOETIN ALFA 10,000 UNITS/ML VIAL SUBQ SCH (08:36)
--- NOTE | 2018-07-22 09:00 | NUR ---
ADMINISTERED MEDS TO PT , TOLERATED WELL. PT IS ON NPO FOR POSSIBLE PROCEDURE TO PLACE ACCESS FOR DIALYSIS ACCESS . PT EXPLAINED THAT HE IS ON NPO AT THIS TIME, ASKING FOR FOOD TO EAT. NO SIGN OF DISTRESS NOTED. PT SLEEPING ON HIS BED. WILL CONTINUE TO MONITOR PT.
[2018-07-22 09:03] LABS: PHOSPHORUS 2.2 mg/dL (2.5-4.9)
[2018-07-22 09:05] LABS: ANION GAP 12.1 (8-16); CARBON DIOXIDE 23.2 mmol/L (21-32); POTASSIUM 4.3 mmol/L (3.5-5.1)
[2018-07-22 09:07] LABS: CREATININE 5.2 mg/dL (0.7-1.3)
[2018-07-22] MEDS: MIDODRINE 5 MG TAB PO SCH ×3 (09:22→17:25)
[2018-07-22] MEDS: DEXT 5% / NACL 0.45% 1,000 ML IV SCH (10:40)
--- NOTE | 2018-07-22 11:56 | NUR ---
RECEIVED CALL FROM . ASKED TO ST UP NEW DIALYSIS CATHETERIZATION PLACEMENT FOR PT. INFORMED CHARGE NURSE STEVE, TOOK OUT THE PLACEMENT KIT. WILL PREPARE THE PLACEMENT KIT ONCE DR PATTON IS HERE. CONSENT SIGN IS SIGNED BY PT AND IS IN PTS FILE. WILL CONTINUE TO MONITOR PT.
--- NOTE | 2018-07-22 12:22 | NUR ---
07/22/18 RD FOLLOW UP COMPLETED PLEASE REFER TO NUTRITION ASSESSMENT UNDER CARE ACTIVITY FOR ESTIMATED NUTRITIONAL NEEDS. 1. CONTINUE NPO DIET MEDICALLY APPROPRIATE 2. WHEN/IF PATIENT MEDICALLY STABLE TO BEGIN NUTRITION, RESUME RENAL, CCHO 60 GM DIET TOLERATED - RECOMMEND DISCONTINUE NEPRO CARBSTEADY D/T PATIENT MEETING 100% NUTRITIONAL NEEDS 3. WHEN/IF PATIENT MEDICALLY STABLE TO CONTINUE NUTRITION, RESUME AMANDA QD 4. RD TO FOLLOW-UP 3-5 DAYS, MODERATE RISK ELE DONOHUE RD
[2018-07-22] MEDS ORDERED: LIDOCAINE 1% 500 MG/50 ML VIAL INJ SCH (12:30)
--- NOTE | 2018-07-22 12:30 | NUR ---
DR PATTON AT BEDSIDE. PT BEING PREPARED FOR BEDSIDE PROCEDURE FOR MIGUEL CATHETER PALCEMENT. USED 1 ML HEPARIN ONLY OUT OF [address] PATTON ORDER. LIDOCAINE 1 %V WITHIN THE PACK THAT SYSTEMS OPERATOR BROUGHT WITH. MEDS RETURNED TO YELLOW BIN. WILL RETURN HEPARIN VIALS TO PHARMACY.
--- NOTE | 2018-07-22 12:41 | NUR ---
DR PATTON AT THE BEDSIDE TO PERFORM MIGUEL CATHETER PLACEMENT PROCEDURE IN PT. WILL CONTINUE TO MONITOR PT.
[2018-07-22] MEDS: Z-GUARD PASTE TP SCH (13:00)
[2018-07-22] MEDS: SKINTEGRITY HYDROGEL TP SCH (13:00)
--- NOTE | 2018-07-22 14:40 | NUR ---
RETURNED 4 VIALS OF 1 ML HEPARIN CODY FROM PHARMACY.
[2018-07-22] MEDS: CHLORHEXADINE GLUC 2% CLOTH TP SCH (15:47)
--- NOTE | 2018-07-22 15:55 | NUR ---
CHECKED ON PT. FAMILY MEMBER AT BEDSIDE, OFFERED THEM TO WEAR GOWN PT IS ON CONTACT ISOLATION. PLACE MIGUEL CATH IN PT LFT IJ BY TODAY. TOLERATED WELL. DID WOUND CARE ON THE PT. NO SIGN OF DISTRESS NOTED. PT ON RENAL DIET. WILL CONTINUE TO MONITOR PT.
[2018-07-22 16:00] VITALS: BP 129/52
--- NOTE | 2018-07-22 18:45 | NUR ---
PLACED ORDER FOR HD FOR PT . PT TO GET HD TONIGHT. HD NURSE STATES HAVE TALKED TO DR MARY VOGEL ALREADY.
--- NOTE | 2018-07-22 19:20 | NUR ---
ENDORSED PT TO PM NURSE AT BEDSIDE. PT IN STABLE CONDITION.
--- NOTE | 2018-07-22 19:21 | NUR ---
RECEIVED REPORT FROM DAYSHIFT NURSE AT BEDSIDE FOR CONTINUITY OF CARE. PT AAOX4. PT IV NOTED L TRIPLE LUMEN MIGUEL CATH D5 10 ML/HR. NO SOB NO S/S OF DISTRESS ON RA. PT HAS RIGHT AKA AND L BKA. BEDREST. BED LOWERED CALL LIGHT WITHIN REACH WILL CONTINUE TO MONITOR.
[2018-07-22] MEDS ORDERED: ALBUMIN HUMAN 25% 100 ML IV SCH (20:00)
[2018-07-22] MEDS: HYDROcodone/APAP 7.5/325 MG 1 TAB PO PRN (20:13)
[2018-07-23] VITALS: BP 129/64
[2018-07-23] MEDS: HYDRAGUARD CREAM TP SCH (01:54)
[2018-07-23] MEDS: HYDROcodone/APAP 7.5/325 MG 1 TAB PO PRN ×2 (01:54→10:03)
--- NOTE | 2018-07-23 02:30 | NUR ---
DIALYSIS DONE NO OUTPUT D/T MD ORDERS. LOW BP 100 SYSTOLIC. WILL CONTINUE TO MONITOR.
--- NOTE | 2018-07-23 03:00 | NUR ---
RESIDENT CARLOS ENRIQUE MADE AWARE OF ORDER NOT BEING CANCELLED FOR AERO/ANAEROBIC CULTURES OF STUMPS, WILL ENDORSED TO AM NURSE AND HAVE HER TALK TO MD AM RESIDENT TO CANCEL ORDERS.
[2018-07-23] MEDS ORDERED: VANCOMYCIN PER PHARMACY MC PRN (06:30)
[2018-07-23] MEDS: BLOOD GLUCOSE MONITORING 1 DEV DEV FS SCH (06:33)
--- NOTE | 2018-07-23 06:51 | NUR ---
PT HAS LOTS OF DIARRHEA 4 EPISODE IN LAST 12 HRS. APPLY Z GUARD WILL CONTINUE TO MONITOR.
--- NOTE | 2018-07-23 06:53 | NUR ---
0630 VANCO ORDERED BUT PHARMACY HAS NOT CLEARED IT.
[2018-07-23 07:00] LABS: BASOPHILS % (AUTO) 0.8 % (0.0-2.0); EOSINOPHILS # (AUTO) 0.2 K/uL (0-0.4); EOSINOPHILS % (AUTO) 4.1 % (0.0-4.0); HEMOGLOBIN 7.9 g/dL (12.0-18.0); LYMPHOCYTES # (AUTO) 1.5 K/uL (2.0-11.5); LYMPHOCYTES % (AUTO) 34.6 % (20.5-51.1); MEAN CORPUSCULAR HEMOGLOBIN 32 pg (27-31); MEAN CORPUSCULAR HGB CONC 33 g/dL (33-37); MEAN CORPUSCULAR VOLUME 97.7 fL (80-94); MONOCYTES # (AUTO) 0.2 K/uL (0.8-1.0); MONOCYTES % (AUTO) 5.2 % (1.7-9.3); NEUTROPHILS # (AUTO) 2.4 K/uL (1.8-7.7); NEUTROPHILS % (AUTO) 55.3 % (42.2-75.2); PLATELET COUNT (AUTO) 89 K/uL (140-450); RED BLOOD CELL COUNT(AUTO) 2.46 MIL/uL (4.20-6.10); RED CELL DISTRIBUTION WIDTH 17.6 % (11.6-13.7); WHITE BLOOD COUNT (AUTO) 4.4 K/uL (4.8-10.8)
--- NOTE | 2018-07-23 07:20 | NUR ---
ENDORSED REPORT TO DAYSHIFT NURSE AT BEDSIDE FOR CONTINUITY OF CARE.
--- NOTE | 2018-07-23 07:30 | NUR ---
RECEIVED PT AAOX4. NO SOB NOTED. NO C/O PAIN AT THIS TIME. WITH LT IJ CENTRAL LINE PATENT AND INTACT. CHEST CLEAR. ABDOMEN SOFT, BOWEL SOUNDS PRESENT. DRESSINGS TO RT AKA AND LT BKA DRY AND INTACT. CONTACT PRECAUTIONS OBSERVED. INSTRUCTED PT TO CALL FOR ASSISTANCE, CALL LIGHT WITHIN REACH, PT VERBALIZED UNDERSTANDING.
[2018-07-23 08:00] VITALS: BP 129/69
[2018-07-23 08:31] LABS: CARBON DIOXIDE 24.8 mmol/L (21-32); CREATININE 3.7 mg/dL (0.7-1.3); POTASSIUM 3.8 mmol/L (3.5-5.1)
--- NOTE | 2018-07-23 09:00 | NUR ---
PT CONSUMED 100% ON BREAKFAST SERVED.
[2018-07-23 09:12] LABS: MAGNESIUM 1.7 mg/dL (1.8-2.4); PHOSPHORUS 1.8 mg/dL (2.5-4.9)
[2018-07-23] MEDS: ATORVASTATIN 20 MG TAB PO SCH (10:03)
[2018-07-23] MEDS: POTASSIUM CHLORIDE 20% 40 MEQ/15 ML UDC GT SCH (10:03)
[2018-07-23] MEDS ORDERED: ATOR20TA40 PO (10:03)
[2018-07-23] MEDS: MIDODRINE 5 MG TAB PO SCH ×2 (10:04→12:10)
[2018-07-23] MEDS: levETIRAcetam 500 MG TAB PO SCH (10:04)
[2018-07-23] MEDS ORDERED: LACT1.4C PO (10:09)
[2018-07-23] MEDS ORDERED: LEVO750T2 PO (10:09)
[2018-07-23] MEDS ORDERED: SODIUM PHOS / POTASSIUM PHOS 1 PKT PDR PO SCH (11:00)
[2018-07-23] MEDS ORDERED: MAGNESIUM OXIDE 400 MG TAB PO SCH (11:00)
--- NOTE | 2018-07-23 11:00 | NUR ---
DRESSING TO RT AND LT STUMPS DONE. DISCHARGE PHOTOS TAKEN AND DOCUMENTED.
--- NOTE | 2018-07-23 13:00 | NUR ---
DISCHARGE INSTRUCTIONS AND PRESCRIPTIONS GIVEN TO PT AND NIECE WHICH IS HIS CAREGIVER. BOTH VERBALIZED FULL UNDERSTANDING OF THE INSTRUCTIONS GIVEN AND THE NEED TO FOLLOW UP WITH PCP WITHIN 7 DAYS. LT IJ CENTRAL LINE SALINE LOCKED. ARM BANDS REMOVED.
--- NOTE | 2018-07-23 13:10 | NUR ---
PT WHEELED OUT TO THE PARKING LOT IN STABLE CONDITION. NO COMPLAINTS MADE. PT IS D/C HOME WITH CAREGIVER GARY.
== END 2018-07-23 13:10 | disposition home or self-care (01) | DRG 721 ==
LOC: MED 21:52 → MIC 07-17 02:12 → MTU 07-19 20:55
PROVIDERS: ADMIT General Practice; ATTEND General Practice
PROC: 02HV33Z Insertion of Infusion Device into Superior Vena Cava, Percutaneous Approach (ICD-10-PCS; principal; 2018-07-17)
PROC: B548ZZA Ultrasonography of Superior Vena Cava, Guidance (ICD-10-PCS; 2018-07-17)
PROC: 05HF33Z Insertion of Infusion Device into Left Cephalic Vein, Percutaneous Approach (ICD-10-PCS; 2018-07-17)
PROC: B54NZZA Ultrasonography of Left Upper Extremity Veins, Guidance (ICD-10-PCS; 2018-07-17)
PROC: 5A1D70Z Performance of Urinary Filtration, Intermittent, Less than 6 Hours Per Day (ICD-10-PCS; 2018-07-18)
PROC: 5A1D70Z Performance of Urinary Filtration, Intermittent, Less than 6 Hours Per Day (ICD-10-PCS; 2018-07-20)
PROC: 0JPW3XZ Removal of Tunneled Vascular Access Device from Lower Extremity Subcutaneous Tissue and Fascia, Percutaneous Approach (ICD-10-PCS; 2018-07-21)
PROC: 0JH63XZ Insertion of Tunneled Vascular Access Device into Chest Subcutaneous Tissue and Fascia, Percutaneous Approach (ICD-10-PCS; 2018-07-22)
PROC: 5A1D70Z Performance of Urinary Filtration, Intermittent, Less than 6 Hours Per Day (ICD-10-PCS; 2018-07-22)
DX: T80.211A Bloodstream infection due to central venous catheter, initial encounter (principal); N17.0 Acute kidney failure with tubular necrosis; R65.21 Severe sepsis with septic shock; A41.59 Other Gram-negative sepsis; E43 Unspecified severe protein-calorie malnutrition; A41.9 Sepsis, unspecified organism; S88.012A Complete traumatic amputation at knee level, left lower leg, initial encounter; I95.3 Hypotension of hemodialysis; E83.39 Other disorders of phosphorus metabolism; I82.411 Acute embolism and thrombosis of right femoral vein; E11.22 Type 2 diabetes mellitus with diabetic chronic kidney disease; G90.8 Other disorders of autonomic nervous system; E11.40 Type 2 diabetes mellitus with diabetic neuropathy, unspecified; E87.6 Hypokalemia; E83.42 Hypomagnesemia; D64.9 Anemia, unspecified; E11.51 Type 2 diabetes mellitus with diabetic peripheral angiopathy without gangrene; G40.909 Epilepsy, unspecified, not intractable, without status epilepticus; G89.29 Other chronic pain; I12.0 Hypertensive chronic kidney disease with stage 5 chronic kidney disease or end stage renal disease; N18.6 End stage renal disease; E78.5 Hyperlipidemia, unspecified; D63.8 Anemia in other chronic diseases classified elsewhere; K52.9 Noninfective gastroenteritis and colitis, unspecified; T82.7XXA Infection and inflammatory reaction due to other cardiac and vascular devices, implants and grafts, initial encounter; Y83.8 Other surgical procedures as the cause of abnormal reaction of the patient, or of later complication, without mention of misadventure at the time of the procedure; Y84.8 Other medical procedures as the cause of abnormal reaction of the patient, or of later complication, without mention of misadventure at the time of the procedure; Z68.21 Body mass index [BMI] 21.0-21.9, adult; Z89.512 Acquired absence of left leg below knee; Z89.611 Acquired absence of right leg above knee; Z99.2 Dependence on renal dialysis; Z68.22 Body mass index [BMI] 22.0-22.9, adult; Z22.322 Carrier or suspected carrier of Methicillin resistant Staphylococcus aureus; X58.XXXA Exposure to other specified factors, initial encounter; Y93.89 Activity, other specified; Y92.89 Other specified places as the place of occurrence of the external cause; Y99.8 Other external cause status
CPT/HCPCS: 36415; 36600; 70450; 71045; 80048; 80053; 80202; 82140; 82150; 82803; 82948; 83036; 83605; 83690; 83735; 83880; 84100; 84436; 84439; 84443; 84479; 84484; 85025; 85610; 85730; 87040; 87045; 87070; 87081; 87186; 87804; 93005; 93880; 93925; 93970; 96361; 96365; 96368; 99291; A6248; J0696; J0885; J1170; J1642; J1644; J1815; J2001; J2060; J2185; J2543; J3010; J3370; J3475; J3480; J3490; J7030; J7060; P9046; Q0092

== ENCOUNTER 2018-08-01 00:04 | Inpatient (IN) | payer OTHER ==
[~2018-08-01] VITALS: Ht 142.2 cm; Wt 58.2 kg
[~2018-08-01 00:04] MED LIST: ATOR20TA40 PO; ATRO1TAB PO; HUMSLIDE SUBQ; KEP500 PO; LACT1.4C PO; LEVO750T2 PO; PRO5 PO
--- NOTE | 2018-08-01 00:04 | NUR ---
PT LOTUS BLS. TAKEN TO BED 3
[2018-08-01 00:08] VITALS: BP 93/55
--- NOTE | 2018-08-01 00:17 | NUR ---
47 Y/O M BIBA W/ C/O "LOOSE CENTRAL LINE THAT NEEDS TO BE REPLACED." PT HAS APPOINTMENT TO GET IT REPLACED TOMORROW BUT HE STATED INCREASING DISCOMFORT TONIGHT AND WANTS IT REPLACED NOW. PT DENIES N/V/D; AAOX4, PERRL; LUNGS CLEAR BL, BREATHING UNLABORED; HR EVEN AND REGULAR, BL PERIPHERAL PULSES PRESENT; PT STATES 7/10 PAIN AT THIS TIME; VSS; PATIENT POSITIONED FOR COMFORT; HOB ELEVATED; BEDRAILS UP X2; BED DOWN.
--- NOTE | 2018-08-01 01:09 | NUR ---
Dr. Bradley evaluating patient at bedside.
--- NOTE | 2018-08-01 01:30 | NUR ---
PT HAD LOOSE STOOL. CLEANED PT BM. PT TOLERATED WELL. PT HAD RASH AND SKIN WAS INFLAMED. REDNESS TO SIGHT. SHADI NICOLE MADE AWARE.
[2018-08-01 02:28] LABS: BASOPHILS # (AUTO) 0.1 K/uL (0.00-0.22); BASOPHILS % (AUTO) 1.1 % (0.0-2.0); EOSINOPHILS # (AUTO) 0.4 K/uL (0-0.4); EOSINOPHILS % (AUTO) 4.7 % (0.0-4.0); HEMATOCRIT 27.1 % (36-52); HEMOGLOBIN 8.8 g/dL (12.0-18.0); LYMPHOCYTES # (AUTO) 1.8 K/uL (2.0-11.5); LYMPHOCYTES % (AUTO) 22.6 % (20.5-51.1); MEAN CORPUSCULAR HEMOGLOBIN 33 pg (27-31); MEAN CORPUSCULAR HGB CONC 32 g/dL (33-37); MEAN CORPUSCULAR VOLUME 100.8 fL (80-94); MONOCYTES # (AUTO) 0.6 K/uL (0.8-1.0); MONOCYTES % (AUTO) 7.5 % (1.7-9.3); NEUTROPHILS % (AUTO) 64.1 % (42.2-75.2); PLATELET COUNT (AUTO) 163 K/uL (140-450); RED BLOOD CELL COUNT(AUTO) 2.69 MIL/uL (4.20-6.10); RED CELL DISTRIBUTION WIDTH 19.2 % (11.6-13.7); WHITE BLOOD COUNT (AUTO) 7.8 K/uL (4.8-10.8)
[2018-08-01 02:44] LABS: ALBUMIN 3.3 g/dL (3.4-5.0); CARBON DIOXIDE 23.9 mmol/L (21-32); POTASSIUM 4.9 mmol/L (3.5-5.1); TOTAL BILIRUBIN 0.5 mg/dL (0.0-1.0)
--- NOTE | 2018-08-01 02:50 | NUR ---
Note undone in ED - 08/01/18 at 0451 by [email or web address] [facility] CALLED FOR REPORT AND TO DISCUSS TRANSFER FOR PT. SPOKE TO DECEMBER. WILL CALL ONCE THEY FIND A BED/HOSPITAL TO ADMIT HIM. RUBIN TO FAX INFORMATION. Addendum: 08/01/18 at 0301 by [email or web address] Amendment undone in ED - 08/01/18 at 0451 by [email or web address] [facility] CALLED FOR REPORT AND TO DISCUSS TRANSFER FOR PT. SPOKE TO DECEMBER. WILL CALL ONCE THEY FIND A BED/HOSPITAL TO ADMIT HIM. RUBIN TO FAX INFORMATION. Addendum: 08/01/18 at 0451 by [email or web address] Amendment undone in EDM - 08/01/18 at 0451 by [email or web address] [facility] CALLED FOR REPORT AND TO DISCUSS TRANSFER FOR PT. TO DECEMBER. WILL CALL ONCE THEY FIND A BED/HOSPITAL TO ADMIT HIM. RUBIN TO FAX INFORMATION.
--- NOTE | 2018-08-01 02:50 | NUR ---
[facility] CALLED FOR REPORT AND TO DISCUSS TRANSFER FOR PT. SPOKE TO DECEMBER. WILL CALL ONCE THEY FIND A BED/HOSPITAL TO ADMIT HIM. RUBIN TO FAX INFORMATION
--- NOTE | 2018-08-01 03:00 | NUR ---
CONTACT INFORMATION FOR FAMILY OF PT. DAUGHTER GARY TAI [phone]. JENNIFER [phone]
--- NOTE | 2018-08-01 04:52 | NUR ---
PT SLEEPING IN BED, VSS. PEDNING TRANSFER, WAITING FOR [facility] TO CALL AND CONFIRM PLACEMENT
[2018-08-01] MEDS ORDERED: NACL 0.9% 1,000 ML IV SCH (06:02)
[2018-08-01] MEDS ORDERED: DOCUSATE SODIUM 100 MG GELCAP PO PRN (06:05)
[2018-08-01] MEDS ORDERED: ACETAMINOPHEN 325 MG TAB PO PRN (06:05)
[2018-08-01] MEDS ORDERED: ZOLPIDEM 5 MG TAB PO PRN (06:05)
[2018-08-01] MEDS ORDERED: ONDANSETRON 4 MG/2 ML VIAL IM/IVP PRN (06:05)
[2018-08-01] MEDS ORDERED: LORazepam 2 MG/ML VIAL IM/IVP PRN (06:05)
--- NOTE | 2018-08-01 07:00 | NUR ---
Pt report given to HIMA KWOK. Transfer of care at this time.VSS
--- NOTE | 2018-08-01 07:00 | NUR ---
Patient will be admitted to care of DR. LARA. Admited to ICU BED #8. Will go to room #8. Belongings list completed. Report to HIMA KWOK.
--- NOTE | 2018-08-01 07:05 | NUR ---
ADMITTED PT FROM ER BY MARCOS. PT ABLE TO MAKE NEEDS KNOWN OR FOLLOW COMMANDS. PT CC IRRITATION OF LEFT IJ. BEDSIDE MONITOR SHOWS SR. RA, NO S/S OF RESPIRATORY DISTRESS NOTED . LUNG SOUND CLEAR, PT HAS AMPUTATION TO BOTH LOWER EXTREMITIES, INCONTINENT DERMATITIS TO JACQUE AND SACRAL AREA NOTED. PT ALSO HAS TWO OPEN WOUNDS TO STUMP OF BOTH LOWER EXTREMITIES. POC EXPLAINED TO PT, WILL CONTINUE TO MONITOR PT.
--- NOTE | 2018-08-01 07:20 | NUR ---
CALLED DAUGHTER TO GIVE UPDATE PER REQUEST OF PT.
[2018-08-01 07:50] LABS: MAGNESIUM 1.9 mg/dL (1.8-2.4); PHOSPHORUS 5.3 mg/dL (2.5-4.9); THYROID STIMULATING HORMONE 2.99 uIU/mL (0.34-3.74)
[2018-08-01 08:00] VITALS: BP 111/68
[2018-08-01] MEDS ORDERED: SKINTEGRITY HYDROGEL TP PRN (08:45)
--- NOTE | 2018-08-01 08:47 | NUR ---
PATIENT HAS BEEN SCREENED AND CATEGORIZED MODERATE NUTRITION RISK. PATIENT WILL BE SEEN WITHIN 3-5 DAYS OF ADMISSION. 08/03/18 08/05/[address]
[2018-08-01] MEDS: SKINTEGRITY HYDROGEL TP SCH (09:00)
--- NOTE | 2018-08-01 09:00 | NUR ---
DUE MEDS GIVEN, PT HAD DIARRHEA, CLEANED PT.
[2018-08-01] MEDS: DIPHENOXYLATE /ATROPINE 2.5 MG TAB PO SCH ×2 (09:49→20:25)
[2018-08-01] MEDS: ATORVASTATIN 20 MG TAB PO SCH (09:49)
[2018-08-01] MEDS: LEVOFLOXACIN 750 MG TAB PO SCH (09:49)
[2018-08-01] MEDS: levETIRAcetam 500 MG TAB PO SCH ×2 (09:49→20:26)
[2018-08-01] MEDS: LACTOBACILLUS RHAMNOSUS GG 1 EACH CAP PO SCH (09:49)
[2018-08-01] MEDS: MIDODRINE 5 MG TAB PO SCH (09:50)
[2018-08-01] MEDS ORDERED: Z-GUARD PASTE TP PRN (10:40)
--- NOTE | 2018-08-01 10:41 | NUR ---
NOTIFIED REGARDING OPEN WOUND TO BOTH STUMPS , NO CULTURE NEEDED.
--- NOTE | 2018-08-01 11:19 | NUR ---
DUE TO RECEIVING A FNS REFERRAL, PATIENT HAS BEEN CATEGORIZED HIGH RISK. PATIENT WILL BE SEEN WITHIN 1-2 DAYS FROM RECEIVING REFERRAL. 08/01/18- 08/02/[address]
[2018-08-01 12:00] VITALS: BP 131/78
--- NOTE | 2018-08-01 12:00 | NUR ---
PT HAD DIARRHEA, CLEANED PT.
[2018-08-01] MEDS ORDERED: DEXTROSE 50% 50 ML SYR IVP PRN (12:30)
[2018-08-01] MEDS: Z-GUARD PASTE TP SCH (13:10)
--- NOTE | 2018-08-01 15:00 | NUR ---
MADE AWARE UNABLE TO GIVE IV FLUID DUE TO PT LIJ IV PIGTAIL UNABLE TO GET BLOOD RETURN .
[2018-08-01] MEDS ORDERED: ALBUMIN HUMAN 25% 50 ML IV PRN (15:15)
[2018-08-01] MEDS ORDERED: NACL 0.9% 1,000 ML IV PRN (15:15)
--- NOTE | 2018-08-01 15:35 | NUR ---
TRANSFERRED PT MST 114, PT AWAKE, ALERT. ALL PERSONAL BELONGINGS WITH PT. REPORT GIVEN TO TEENA. PT'S FAMILY MADE AWARE.
--- NOTE | 2018-08-01 15:36 | NUR ---
RECEIVED PT FROM ICU FOR CONTINUITY OF CARE. PT IN STABLE CONDITION. RESPIRATIONS EVEN AND UNLABORED. IJ INTACT. REVIEWED CARE PLAN WITH PT, PT VERBALIZED UNDERSTANDING OF PLAN. SAFETY MEASURES IN PLACE. CALL LIGHT AT BEDSIDE. BED IN LOW POSITION. WILL CONTINUE TO MONITOR.
[2018-08-01 16:00] VITALS: BP 126/69
[2018-08-01] MEDS: BLOOD GLUCOSE MONITORING 1 DEV DEV FS SCH ×2 (16:30→20:30)
--- NOTE | 2018-08-01 17:15 | NUR ---
PT WANTS TO WAIT TO EAT DINNER, WHEN DONE WITH DIALYSIS TREATMENT.
--- NOTE | 2018-08-01 19:20 | NUR ---
GAVE REPORT TO INVENTORY CONTROL COORDINATOR NURSE FOR CONTINUITY OF CARE. PT IN STABLE CONDITION
--- NOTE | 2018-08-01 19:21 | NUR ---
REPORT RECEIVED FROM AM NURSE AT BEDSIDE. PT IN STABLE CONDITION. AAOX4. INTRODUCED SELF TO PT. BOARD UPDATED. NO COMPLAINTS OF PAIN. NO SOB. AFEBRILE. PT HAS A L IJ SL THAT FLUSHES WELL BUT HAS NO BLOOD RETURN. DR. PATTON TO REPLACE THE IJ TOMORROW. CONSENT TO BE SIGNED. SKIN WARM, DRY, AND NOT INTACT DUE TO OLD HEALED WOUNDS. AT THE STUMP. BED LOCKED IN LOW POSITION. CALL CONTRERAS WITHIN REACH. SAFETY PRECAUTIONS IN PLACE.
[2018-08-01 20:00] VITALS: BP 118/56
--- NOTE | 2018-08-01 20:25 | NUR ---
LOMOTIL AND KEPPRA GIVEN PO. MYCOSTATIN CREAM APPLIED TO GROIN, BUTTOCK, AND SACRAL AREA. BS 138. NO INSULIN COVERAGE NEEDED. PT TOLERATED WELL.
[2018-08-01] MEDS: NYSTATIN CRE 100 MU/GM 15 GM TUBE TP SCH (20:26)
--- NOTE | 2018-08-01 20:37 | NUR ---
PT RECEIVING DIALYSIS AT THIS TIME. PT TOLERATING WELL. WILL CONTINUE TO MONITOR.
--- NOTE | 2018-08-01 21:00 | NUR ---
CONSENT SIGNED FOR L IJ REPLACEMENT WITH DR. PATTON.
--- NOTE | 2018-08-01 23:00 | NUR ---
PT SLEEPING COMFORTABLY SUPINE WITH BLANKET COVERING HIS HEAD BUT AROUSEABLE. NO S/S OF DISTRESS NOTED. WILL CONTINUE TO MONITOR.
[2018-08-02] VITALS: BP 110/62
[2018-08-02] MEDS: HYDROcodone/APAP 5/325 MG 1 TAB TAB PO PRN (00:34)
--- NOTE | 2018-08-02 00:34 | NUR ---
NORCO GIVEN FOR 6/10 PAIN OF THE SACRAL, BUTTOCKS, AND PERINEAL AREA. PT TOLERATED WELL.
[2018-08-02] MEDS: Z-GUARD PASTE TP SCH ×2 (00:37→11:31)
--- NOTE | 2018-08-02 00:37 | NUR ---
ZGUARD APPLIED AFTER PT HAD A BM. PT TOLERATED WELL.
--- NOTE | 2018-08-02 02:30 | NUR ---
PT SLEEPING COMFORTABLY IN BED. NO S/S OF DISTRESS NOTED. WILL CONTINUE TO MONITOR.
[2018-08-02 04:00] VITALS: BP 84/42
--- NOTE | 2018-08-02 04:30 | NUR ---
PT HAD BM. NEW GOWN AND LINENS. PT TOLERATED WELL.
[2018-08-02] MEDS: BLOOD GLUCOSE MONITORING 1 DEV DEV FS SCH ×4 (06:37→21:27)
--- NOTE | 2018-08-02 06:37 | NUR ---
BS 74. NO INSULIN COVERAGE NEEDED.
--- NOTE | 2018-08-02 07:05 | NUR ---
REPORT GIVEN TO AM NURSE AT BEDSIDE. PT IN STABLE CONDITION.
--- NOTE | 2018-08-02 07:15 | NUR ---
RECEIVED BEDSIDE REPORT FROM SWIMMING POOL ATTENDANT RN. PT SLEEPING IN BED, AROUSABLE BY VOICE. NO S/S DISTRESS. DENIES PAIN AND DISCOMFORT AT THIS TIME. RESPIRATIONS EVEN AND UNLABORED. GENITAL/SACRAL INCONTINENT DERMATITIS. LT IJ MIGUEL CATH IN PLACE, ON SL. PER SWIMMING POOL ATTENDANT, PT TO RECEIVE HD TODAY AFTER TUNNELED HD PERMACATH PLACEMENT. OLD SHUNT ON LT ARM. SZ PRECAUTIONS. CONTACT PRECAUTIONS. ALL SAFETY PRECAUTIONS IN PLACE, WILL CONTINUE TO MONITOR.
[2018-08-02 07:30] LABS: BASOPHILS # (AUTO) 0.1 K/uL (0.00-0.22); EOSINOPHILS # (AUTO) 0.3 K/uL (0-0.4); HEMATOCRIT 26.8 % (36-52); HEMOGLOBIN 8.5 g/dL (12.0-18.0); LYMPHOCYTES % (AUTO) 25.2 % (20.5-51.1); MEAN CORPUSCULAR HEMOGLOBIN 32 pg (27-31); MEAN CORPUSCULAR HGB CONC 32 g/dL (33-37); MEAN CORPUSCULAR VOLUME 101.1 fL (80-94); MONOCYTES # (AUTO) 0.6 K/uL (0.8-1.0); MONOCYTES % (AUTO) 7.5 % (1.7-9.3); NEUTROPHILS # (AUTO) 4.9 K/uL (1.8-7.7); NEUTROPHILS % (AUTO) 62.3 % (42.2-75.2); PLATELET COUNT (AUTO) 155 K/uL (140-450); RED BLOOD CELL COUNT(AUTO) 2.66 MIL/uL (4.20-6.10); RED CELL DISTRIBUTION WIDTH 18.7 % (11.6-13.7); WHITE BLOOD COUNT (AUTO) 7.9 K/uL (4.8-10.8)
[2018-08-02 07:31] LABS: ANION GAP 15.8 (8-16); CARBON DIOXIDE 24.8 mmol/L (21-32); POTASSIUM 4.6 mmol/L (3.5-5.1)
[2018-08-02 07:35] LABS: MAGNESIUM 1.8 mg/dL (1.8-2.4); PHOSPHORUS 4.5 mg/dL (2.5-4.9)
[2018-08-02 07:39] LABS: CREATININE 5.4 mg/dL (0.7-1.3)
[2018-08-02 08:00] VITALS: BP 87/39
[2018-08-02] MEDS: LEVOFLOXACIN 750 MG TAB PO SCH (08:21)
[2018-08-02] MEDS: ATORVASTATIN 20 MG TAB PO SCH (08:22)
[2018-08-02] MEDS: levETIRAcetam 500 MG TAB PO SCH ×2 (08:22→21:27)
[2018-08-02] MEDS: DIPHENOXYLATE /ATROPINE 2.5 MG TAB PO SCH ×2 (08:22→21:27)
[2018-08-02] MEDS: MIDODRINE 5 MG TAB PO SCH (08:22)
[2018-08-02] MEDS: LACTOBACILLUS RHAMNOSUS GG 1 EACH CAP PO SCH (08:23)
[2018-08-02] MEDS: NYSTATIN CRE 100 MU/GM 15 GM TUBE TP SCH ×2 (08:23→21:27)
[2018-08-02] MEDS: SKINTEGRITY HYDROGEL TP SCH (08:23)
--- NOTE | 2018-08-02 08:26 | NUR ---
NOTIFIED DR. IRBY THAT CARPENTER ASSEMBLER HAD MISTAKENLY GIVEN PT HIS BREAKFAST TRAY AND PATIENT HAS ATE 80% OF IT. DR. IRBY TO NOTIFY DR. PATTON.
--- NOTE | 2018-08-02 08:47 | NUR ---
PER MILL TENDER WARM UP INGRID, KEEP PATIENT NPO FOR 6 HOURS FOR TUNNELED HD CATH PLACEMENT LATER TODAY. WILL EXPLAIN TO PATIENT.
--- NOTE | 2018-08-02 09:15 | NUR ---
EXPLAINED TO PT THAT HE IS TO REMAIN NPO FOR THE NEXT 6 HOURS IN PREPARATION FOR THE TUNNELED HD PERMACATH PLACEMENT. PT VERBALIZED COMPLETE UNDERSTANDING. AOX4. ALL FOOD/LIQUIDS REMOVED FROM BEDSIDE.
[2018-08-02 12:00] VITALS: BP 111/61
--- NOTE | 2018-08-02 12:27 | NUR ---
PATIENT SLEEPING IN BED, AROUSABLE BY VOICE. NO S/S DISTRESS. ALL SAFETY PRECAUTIONS IN PLACE, WILL CONTINUE TO MONITOR.
--- NOTE | 2018-08-02 12:33 | NUR ---
OR AWARE THAT PT HAD BREAKFAST TRAY AND STARTED NPO AT 0900 THIS MORNING. TOLD OR THAT DR. IRBY HAS ALREADY NOTIFIED DR. PATTON OF THIS.
--- NOTE | 2018-08-02 13:02 | NUR ---
08/02/18 RD INITIAL ASSESSMENT COMPLETED PLEASE REFER TO NUTRITION ASSESSMENT UNDER CARE ACTIVITY FOR ESTIMATED NUTRITIONAL NEEDS. 1. CONTINUE NPO DIET, UNTIL MEDICALLY APPROPRIATE TO BEGIN NUTRITION 2. WHEN/IF PATIENT MEDICALLY STABLE TO BEGIN NUTRITION, CONSIDER ADVANCE DIET TO RENAL 60 GM CCHO DIET 3. RECOMMEND MEDICATION NEPHROVITE TO AID IN WOUND HEALING 4. RD TO FOLLOW-UP 3-5 DAYS, MODERATE RISK ASHER HERNÁNDEZ RD
--- NOTE | 2018-08-02 13:13 | NUR ---
PER WHITNEY KWOK FROM OR, WILL TAKE PATIENT FOR PROCEDURE SOMETIME AFTER 1600.
--- NOTE | 2018-08-02 14:15 | NUR ---
FAMILY MEMBER AT BEDSIDE INQUIRING ABOUT PLANNED PROCEDURE TIME. INFORMED FAMILY MEMBER THAT PER OR, PATIENT WILL BE TAKEN FOR PROCEDURE AROUND/AFTER [id number]. FAMILY MEMBER VERBALIZED COMPLETE UNDERSTANDING.
[2018-08-02 16:00] VITALS: BP 95/40
--- NOTE | 2018-08-02 16:08 | NUR ---
PT IS SLEEPING IN BED NOW. INFORMED FAMILY MEMBER AT BEDSIDE THAT DR. PATTON CALLED REGARDING PLAN FOR PROCEDURE AT 1700. FAMILY MEMBER VERBALIZED COMPLETE UNDERSTANDING.
--- NOTE | 2018-08-02 16:15 | NUR ---
OR NURSE TOOK PATIENT FOR PROCEDURE. Addendum: 08/02/18 at 1802 by Gavi Mix Meng, RN REAL TIME [id number]
--- NOTE | 2018-08-02 16:21 | NUR ---
PER LOCATION MANAGER AYLEEN, OR WILL BE READY FOR PATIENT AT 1730. INFORMED FAMILY MEMBER AT BEDSIDE WHO VERBALIZED COMPLETE UNDERSTANDING.
--- NOTE | 2018-08-02 17:50 | NUR ---
OR NURSE TOOK PATIENT FOR PROCEDURE.
[2018-08-02] MEDS ORDERED: fentaNYL 0.05 MG/ML VIAL ONE (18:04)
[2018-08-02] MEDS ORDERED: MIDAZOLAM 2 MG/2 ML VIAL ONE (18:04)
[2018-08-02] MEDS ORDERED: ceFAZolin 1,000 MG VIAL ONE (18:07)
[2018-08-02] MEDS ORDERED: BUPIVACAINE-MPF/EPI 0.25% 30 ML VIAL INJ ONE (18:08)
[2018-08-02] MEDS ORDERED: LIDOCAINE 1% 50 ML ONE (18:09)
[2018-08-02 18:40] LABS: ANION GAP 15.9 (8-16); CARBON DIOXIDE 24.8 mmol/L (21-32); POTASSIUM 5.7 mmol/L (3.5-5.1); TOTAL BILIRUBIN 0.6 mg/dL (0.0-1.0)
[2018-08-02 18:55] LABS: CREATININE 6.1 mg/dL (0.7-1.3)
--- NOTE | 2018-08-02 19:14 | NUR ---
ENDORSED POC TO HORTICULTURAL MANAGER RN. PT IN OR FOR PROCEDURE NOW. ENDORSED K+ 5.7.
--- NOTE | 2018-08-02 19:15 | NUR ---
RECEIVED REPORT FROM DAY SHIFT NURSE HIMA-SUNDAR. PT CURRENTLY OUT OF UNIT - IN OR FOR TUNNEL HEMODIALYSIS PERMA CATH PLACEMENT AND REMOVAL OF RIGHT IJ.
[2018-08-02 20:00] VITALS: BP 96/45
--- NOTE | 2018-08-02 20:15 | NUR ---
RECEIVED REPORT FROM OR NURSE. PT RESTING IN BED. AOX4, ON ROOM AIR WITH LEFT SUBCLAVIAN HEMODIALYSIS CATHETER. RIGHT IJ HAS BEEN REMOVED. LEFT WRIST #20G-SL. LEFT ARM SHUNT- RESTRICTED EXTREMITY. LEFT BKA/ RIGHT AKA. INCONTINENT DERMATITIS IN SACRAL/JACQUE AREA. HEMODIALYSIS SUNDAY, SUNDAY AND SUNDAY. HX OF MRSA WOUND- SINCE HEALED. DISCUSSED PLAN OF CARE AND PT VERBALIZED UNDERSTANDING. NO S/S OF RESPIRATORY DISTRESS OR DISCOMFORT NOTED AT THIS TIME. VITAL SIGNS TAKEN AND TOLERATED WELL. B/P DECREASED NOTED. BLOOD GLUCOSE 71- TAKEN IN OR AND APPLE JUICE GIVEN IN OR. BED IN LOWEST POSITION, BED BREAKS ON. BOTH SIDE RAILS UP AND FALL PRECAUTIONS IN PLACE. SEIZURE PRECAUTIONS IN PLACE. BEDSIDE TABLE AND CALL LIGHT ARE WITHIN REACH. WILL CONTINUE TO MONITOR.
[2018-08-02] MEDS ORDERED: CALCIUM GLUCONATE 10% 1,000 MG in NACL 0.9% 50 ML IV ONE (20:25)
--- NOTE | 2018-08-02 20:30 | NUR ---
PT C/O HUNGER. INFORMED DR. MONACO AND PLACED PT ON A CLEAR LIQUID DIET NOW AND WILL HAVE A REGULAR DIET FOR BREAKFAST 08/03/18. PT CONTINUES TO C/O WANTING "REAL FOOD." INFORMED DR. MONACO AND HE PERMITTED PT TO HAVE SALTINE CRACKERS OR AMAYA CRACKERS. PT TOLERATED WELL.
--- NOTE | 2018-08-02 21:27 | NUR ---
SCHEDULED MEDICATION GIVEN AND TOLERATED WELL. NO S/S OF RESPIRATORY DISTRESS OR DISCOMFORT NOTED AT THIS TIME. WILL CONTINUE TO MONITOR.
[2018-08-02] MEDS ORDERED: CALCIUM GLUCONATE 10% 1,000 MG in NACL 0.9% 50 ML IV SCH (21:30)
[2018-08-02] MEDS ORDERED: CALCIUM GLUCONATE 10% 1000 MG/10 ML VIAL ONE (21:39)
--- NOTE | 2018-08-02 22:00 | NUR ---
PERINEAL CARE GIVEN AFTER PT BM INCONTINENCE. Z-GUARD APPLIED. PT TOLERATED WELL. NO S/S OF RESPIRATORY DISTRESS OR DISCOMFORT NOTED AT THIS TIME. WILL CONTINUE TO MONITOR.
[2018-08-03] VITALS: BP 96/54
--- NOTE | 2018-08-03 | NUR ---
VITAL SIGNS TAKEN BY TONY. NO S/S OF RESPIRATORY DISTRESS OR DISCOMFORT NOTED AT THIS TIME. WILL CONTINUE TO MONITOR.
[2018-08-03] MEDS: Z-GUARD PASTE TP SCH ×2 (01:11→12:30)
--- NOTE | 2018-08-03 02:00 | NUR ---
PT CONTINUES TO SLEEP IN BED. NO S/S OF RESPIRATORY DISTRESS OR DISCOMFORT NOTED AT THIS TIME. WILL CONTINUE TO MONITOR.
[2018-08-03 04:00] VITALS: BP 85/37
--- NOTE | 2018-08-03 04:00 | NUR ---
VITAL SIGNS TAKEN AND TOLERATED WELL. NO S/S OF RESPIRATORY DISTRESS OR DISCOMFORT NOTED AT THIS TIME. WILL CONTINUE TO MONITOR.
--- NOTE | 2018-08-03 06:00 | NUR ---
BLOOD GLUCOSE 75- NO INSULIN COVERAGE NEEDED.
--- NOTE | 2018-08-03 07:24 | NUR ---
ENDORSED PT CARE TO DAY SHIFT NURSE FOREIGN FOR CONTINUITY OF CARE.
--- NOTE | 2018-08-03 07:29 | NUR ---
RECEIVED REPORT FROM FAIRGROUND OPERATOR. PT RESTING IN BED. AOX4, ON ROOM AIR WITH LEFT SUBCLAVIAN HEMODIALYSIS CATHETER. RIGHT IJ WAS REMOVED. LEFT WRIST #20G-SL. LEFT ARM SHUNT- RESTRICTED EXTREMITY. LEFT BKA/ RIGHT AKA. INCONTINENT DERMATITIS IN SACRAL/JACQUE AREA. HEMODIALYSIS SUNDAY, SUNDAY AND SUNDAY. HX OF MRSA WOUND- SINCE HEALED. DISCUSSED PLAN OF CARE AND PT VERBALIZED UNDERSTANDING. NO S/S OF RESPIRATORY DISTRESS OR DISCOMFORT NOTED AT THIS TIME. BED IN LOWEST POSITION, BED BREAKS ON. BOTH SIDE RAILS UP AND FALL PRECAUTIONS IN PLACE. SEIZURE PRECAUTIONS IN PLACE. BEDSIDE TABLE AND CALL LIGHT ARE WITHIN REACH. WILL CONTINUE TO MONITOR.
--- NOTE | 2018-08-03 07:40 | NUR ---
RECEIVED CRITICAL VALUE FROM LAB. PT BUN 27 AND FRUIT ROOM HAND 6.9. WAS NOTIFIED.
[2018-08-03 07:41] LABS: ANION GAP 14.8 (8-16); POTASSIUM 4.8 mmol/L (3.5-5.1)
[2018-08-03 07:45] LABS: BASOPHILS # (AUTO) 0.1 K/uL (0.00-0.22); CREATININE 6.9 mg/dL (0.7-1.3); EOSINOPHILS # (AUTO) 0.2 K/uL (0-0.4); EOSINOPHILS % (AUTO) 3.6 % (0.0-4.0); HEMATOCRIT 23.4 % (36-52); HEMOGLOBIN 7.5 g/dL (12.0-18.0); LYMPHOCYTES # (AUTO) 1.9 K/uL (2.0-11.5); LYMPHOCYTES % (AUTO) 30.4 % (20.5-51.1); MEAN CORPUSCULAR HEMOGLOBIN 33 pg (27-31); MEAN CORPUSCULAR HGB CONC 32 g/dL (33-37); MONOCYTES # (AUTO) 0.5 K/uL (0.8-1.0); MONOCYTES % (AUTO) 7.6 % (1.7-9.3); NEUTROPHILS # (AUTO) 3.6 K/uL (1.8-7.7); NEUTROPHILS % (AUTO) 57.4 % (42.2-75.2); PLATELET COUNT (AUTO) 131 K/uL (140-450); RED CELL DISTRIBUTION WIDTH 19.1 % (11.6-13.7); WHITE BLOOD COUNT (AUTO) 6.3 K/uL (4.8-10.8)
[2018-08-03] MEDS: BLOOD GLUCOSE MONITORING 1 DEV DEV FS SCH ×4 (07:47→21:08)
[2018-08-03 08:00] VITALS: BP 100/59
[2018-08-03 08:08] LABS: MAGNESIUM 1.7 mg/dL (1.8-2.4); PHOSPHORUS 5.9 mg/dL (2.5-4.9)
[2018-08-03] MEDS ORDERED: EPOETIN ALFA 10,000 UNITS/ML VIAL SUBQ SCH (09:00)
--- NOTE | 2018-08-03 09:40 | NUR ---
DIALYSIS NURSE ARRIVED FOR PT DIALYSIS TODAY. ORDERS AND LABS GIVEN TO HD NURSE.
[2018-08-03] MEDS: LACTOBACILLUS RHAMNOSUS GG 1 EACH CAP PO SCH (10:05)
[2018-08-03] MEDS: LEVOFLOXACIN 750 MG TAB PO SCH (10:05)
[2018-08-03] MEDS: MIDODRINE 5 MG TAB PO SCH (10:05)
[2018-08-03] MEDS: ATORVASTATIN 20 MG TAB PO SCH (10:06)
[2018-08-03] MEDS: levETIRAcetam 500 MG TAB PO SCH ×2 (10:06→21:07)
[2018-08-03] MEDS: DIPHENOXYLATE /ATROPINE 2.5 MG TAB PO SCH ×2 (10:06→21:08)
[2018-08-03] MEDS: NYSTATIN CRE 100 MU/GM 15 GM TUBE TP SCH ×2 (10:07→21:08)
[2018-08-03] MEDS: SKINTEGRITY HYDROGEL TP SCH (10:07)
[2018-08-03] MEDS ORDERED: ALBUMIN HUMAN 25% 50 ML IV SCH (10:30)
--- NOTE | 2018-08-03 11:57 | NUR ---
PT RESTING IN BED. HEMODIALYSIS RUNNING. PT TOLERATING WELL. ALBUMIN GIVEN FOR DECREASING BP.
[2018-08-03 12:00] VITALS: BP 104/58
[2018-08-03] MEDS: INSULIN LISPRO SLIDING SCALE 100 UNITS/ML VIAL SUBQ PRN ×2 (13:01→21:41)
--- NOTE | 2018-08-03 13:45 | NUR ---
HD FINISHED. NO FLUID WAS REMOVED FROM PT. 100ML ALBUMIN GIVEN TO PT. PT TOLERATED HD WELL. VITALS FOLLOWS: TEMP 97.5, HR 60, BP 104/58, RR 16, O2 97, 0/10 PAIN. PT NEEDS MET AT THIS TIME. WILL CONTINUE TO ROUND FREQUENTLY.
[2018-08-03 16:00] VITALS: BP 100/69
[2018-08-03] MEDS ORDERED: MAGNESIUM OXIDE 400 MG TAB PO SCH (16:00)
--- NOTE | 2018-08-03 19:25 | NUR ---
ENDORSED PT TO CRUSHER LOADER OPERATOR FOR CONTINUITY OF CARE. PT IN STABLE CONDITION.
--- NOTE | 2018-08-03 19:26 | NUR ---
RECEIVED REPORT FROM DAY SHIFT NURSE VEDA-SUNDAR AT BEDSIDE. PT RESTING IN BED. AOX4, ON ROOM AIR WITH LEFT SUBCLAVIAN HEMODIALYSIS CATHETER. LEFT WRIST #20G-SL. LEFT ARM SHUNT- RESTRICTED EXTREMITY. LEFT BKA/ RIGHT AKA. INCONTINENT DERMATITIS IN SACRAL/JACQUE AREA. HEMODIALYSIS SUNDAY, SUNDAY AND SUNDAY. HX OF MRSA WOUND- SINCE HEALED. DISCUSSED PLAN OF CARE AND PT VERBALIZED UNDERSTANDING. NO S/S OF RESPIRATORY DISTRESS OR DISCOMFORT NOTED AT THIS TIME. BED IN LOWEST POSITION, BED BREAKS ON. BOTH SIDE RAILS UP AND FALL PRECAUTIONS IN PLACE. SEIZURE PRECAUTIONS IN PLACE. BEDSIDE TABLE AND CALL LIGHT ARE WITHIN REACH. WILL CONTINUE TO MONITOR.
[2018-08-03 20:00] VITALS: BP 118/73
--- NOTE | 2018-08-03 20:00 | NUR ---
VITAL SIGNS TAKEN AND TOLERATED WELL. PT C/O PAIN 01/20- WILL ADMINISTER PAIN MEDICATION. BLOOD GLUCOSE 165- WILL ADMINISTER INSULIN COVERAGE. NO S/S OF RESPIRATORY DISTRESS AT THIS TIME. WILL CONTINUE TO MONITOR.
[2018-08-03] MEDS: HYDROcodone/APAP 5/325 MG 1 TAB TAB PO PRN (21:07)
--- NOTE | 2018-08-03 21:07 | NUR ---
NORCO GIVEN FOR PAIN. PT TOLERATED WELL. WILL CONTINUE TO MONITOR.
--- NOTE | 2018-08-03 21:15 | NUR ---
SCHEDULED MEDICATION GIVEN AND TOLERATED WELL. NO S/S OF RESPIRATORY DISTRESS AT THIS TIME. WILL CONTINUE TO MONITOR.
--- NOTE | 2018-08-03 21:41 | NUR ---
INSULIN COVERAGE GIVEN AND TOLERATED WELL. NO S/S OF RESPIRATORY DISTRESS AT THIS TIME. WILL CONTINUE TO MONITOR.
--- NOTE | 2018-08-03 22:30 | NUR ---
PT SLEEPING IN BED. NO S/S OF RESPIRATORY DISTRESS OR DISCOMFORT NOTED AT THIS TIME. WILL CONTINUE TO MONITOR.
[2018-08-04] VITALS: BP 89/44
--- NOTE | 2018-08-04 | NUR ---
VITAL SIGNS TAKEN AND TOLERATED WELL. NO S/S OF RESPIRATORY DISTRESS OR DISCOMFORT NOTED AT THIS TIME. WILL CONTINUE TO MONITOR.
[2018-08-04] MEDS: Z-GUARD PASTE TP SCH (00:32)
--- NOTE | 2018-08-04 02:00 | NUR ---
PT CONTINUES TO SLEEP. NO S/S OF RESPIRATORY DISTRESS OR DISCOMFORT NOTED AT THIS TIME. WILL CONTINUE TO MONITOR.
[2018-08-04 04:00] VITALS: BP 90/44
--- NOTE | 2018-08-04 04:00 | NUR ---
VITAL SIGNS TAKEN AND TOLERATED WELL. NO S/S OF RESPIRATORY DISTRESS OR DISCOMFORT NOTED AT THIS TIME. WILL CONTINUE TO MONITOR.
--- NOTE | 2018-08-04 06:00 | NUR ---
BLOOD GLUCOSE 102- NO INSULIN COVERAGE NEEDED.
[2018-08-04] MEDS: BLOOD GLUCOSE MONITORING 1 DEV DEV FS SCH ×2 (06:21→11:30)
[2018-08-04 06:55] LABS: BASOPHILS # (AUTO) 0.1 K/uL (0.00-0.22); BASOPHILS % (AUTO) 1.3 % (0.0-2.0); EOSINOPHILS # (AUTO) 0.2 K/uL (0-0.4); EOSINOPHILS % (AUTO) 3.9 % (0.0-4.0); HEMOGLOBIN 8.1 g/dL (12.0-18.0); LYMPHOCYTES # (AUTO) 1.5 K/uL (2.0-11.5); MEAN CORPUSCULAR HEMOGLOBIN 32 pg (27-31); MEAN CORPUSCULAR HGB CONC 32 g/dL (33-37); MEAN CORPUSCULAR VOLUME 100.4 fL (80-94); MONOCYTES # (AUTO) 0.3 K/uL (0.8-1.0); MONOCYTES % (AUTO) 6.5 % (1.7-9.3); NEUTROPHILS % (AUTO) 58.3 % (42.2-75.2); PLATELET COUNT (AUTO) 112 K/uL (140-450); RED BLOOD CELL COUNT(AUTO) 2.49 MIL/uL (4.20-6.10); RED CELL DISTRIBUTION WIDTH 18.1 % (11.6-13.7); WHITE BLOOD COUNT (AUTO) 5.1 K/uL (4.8-10.8)
--- NOTE | 2018-08-04 07:19 | NUR ---
REPORT GIVEN TO DAY SHIFT NURSE VEDA-SUNDAR FOR CONTINUITY OF CARE.
[2018-08-04 07:25] LABS: ANION GAP 10.9 (8-16); CARBON DIOXIDE 27.8 mmol/L (21-32); POTASSIUM 3.7 mmol/L (3.5-5.1)
[2018-08-04 07:28] LABS: CREATININE 5.1 mg/dL (0.7-1.3)
--- NOTE | 2018-08-04 07:28 | NUR ---
RECEIVED REPORT FROM BAGGAGE SECURITY CHECKER NURSE JUNIOR AT BEDSIDE. PT RESTING IN BED. AOX4, ON ROOM AIR WITH LEFT SUBCLAVIAN HEMODIALYSIS CATHETER. LEFT WRIST #20G-SL. LEFT ARM SHUNT- RESTRICTED EXTREMITY. LEFT BKA/ RIGHT AKA. INCONTINENT DERMATITIS IN SACRAL/JACQUE AREA. HEMODIALYSIS SUNDAY, SUNDAY AND SUNDAY. HX OF MRSA WOUND- SINCE HEALED. DISCUSSED PLAN OF CARE AND PT VERBALIZED UNDERSTANDING. NO S/S OF RESPIRATORY DISTRESS OR DISCOMFORT NOTED AT THIS TIME. BED IN LOWEST POSITION, BED BREAKS ON. BOTH SIDE RAILS UP AND FALL PRECAUTIONS IN PLACE. SEIZURE PRECAUTIONS IN PLACE. BEDSIDE TABLE AND CALL LIGHT ARE WITHIN REACH. WILL CONTINUE TO MONITOR.
[2018-08-04 07:32] LABS: MAGNESIUM 1.6 mg/dL (1.8-2.4); PHOSPHORUS 4.5 mg/dL (2.5-4.9)
[2018-08-04 08:00] VITALS: BP 88/48
[2018-08-04] MEDS ORDERED: MAGNESIUM OXIDE 400 MG TAB PO SCH (09:30)
[2018-08-04] MEDS: MIDODRINE 5 MG TAB PO SCH (09:30)
[2018-08-04] MEDS: ATORVASTATIN 20 MG TAB PO SCH (09:31)
[2018-08-04] MEDS: DIPHENOXYLATE /ATROPINE 2.5 MG TAB PO SCH (09:31)
[2018-08-04] MEDS: LACTOBACILLUS RHAMNOSUS GG 1 EACH CAP PO SCH (09:31)
[2018-08-04] MEDS: levETIRAcetam 500 MG TAB PO SCH (09:31)
[2018-08-04] MEDS: SKINTEGRITY HYDROGEL TP SCH (09:34)
[2018-08-04] MEDS: NYSTATIN CRE 100 MU/GM 15 GM TUBE TP SCH (09:34)
--- NOTE | 2018-08-04 10:54 | NUR ---
ADMINISTERED MORNING MEDS TO PT. PT TOLERATED THEM WELL. HEPARIN WAS HELD DUE TO PT REFUSAL. ALL NEEDS MET AT THIS TIME. BED IN LOW POSITION. CALL LIGHT WITHIN REACH.
[2018-08-04 10:59] VITALS: BP 88/48
[2018-08-04 12:00] VITALS: BP 124/73
--- NOTE | 2018-08-04 14:00 | NUR ---
PATIENT DISCHARGED TO HOME WITH CAREGIVER. PT SIGNED DISCHARGE PAPERWORK. COPIES OF ALL GIVEN TO PT. PRESCRIPTION GIVEN TO PT. EDUCATED ON MEDICATION USE. PT IV REMOVED, TIP INTACT. WRIST BANDS REMOVED. PT IN STABLE CONDITION. PT VERBALIZED UNDERSTANDING OF TEACHING INSTRUCTIONS AND FOLLOW UP WITH PCP. ALL PERSONAL BELONGINGS TAKEN WITH PT. NO SIGNS OF SOB. PT DENIED PAIN. PT TAKEN BY WHEELCHAIR TO CAREGIVER'S CAR.
[2018-08-05] MEDS ORDERED: LEVOFLOXACIN 750 MG TAB PO SCH (09:00)
== END 2018-08-04 14:00 | disposition home or self-care (01) | DRG 194 ==
LOC: MED 00:04 → MIC 06:02 → MTU 15:46
PROVIDERS: ADMIT General Practice; ATTEND General Practice
PROC: 5A1D70Z Performance of Urinary Filtration, Intermittent, Less than 6 Hours Per Day (ICD-10-PCS; 2018-08-01)
PROC: 02HV33Z Insertion of Infusion Device into Superior Vena Cava, Percutaneous Approach (ICD-10-PCS; 2018-08-02)
PROC: B5181ZA Fluoroscopy of Superior Vena Cava using Low Osmolar Contrast, Guidance (ICD-10-PCS; 2018-08-02)
PROC: 02PYX3Z Removal of Infusion Device from Great Vessel, External Approach (ICD-10-PCS; 2018-08-02)
PROC: B548ZZA Ultrasonography of Superior Vena Cava, Guidance (ICD-10-PCS; 2018-08-02)
PROC: 0JH63XZ Insertion of Tunneled Vascular Access Device into Chest Subcutaneous Tissue and Fascia, Percutaneous Approach (ICD-10-PCS; principal; 2018-08-02 14:30)
PROC: 5A1D70Z Performance of Urinary Filtration, Intermittent, Less than 6 Hours Per Day (ICD-10-PCS; 2018-08-03)
DX: I13.2 Hypertensive heart and chronic kidney disease with heart failure and with stage 5 chronic kidney disease, or end stage renal disease (principal); N17.0 Acute kidney failure with tubular necrosis; I95.9 Hypotension, unspecified; E11.22 Type 2 diabetes mellitus with diabetic chronic kidney disease; E11.51 Type 2 diabetes mellitus with diabetic peripheral angiopathy without gangrene; R64 Cachexia; E44.1 Mild protein-calorie malnutrition; Z89.611 Acquired absence of right leg above knee; N18.6 End stage renal disease; I50.43 Acute on chronic combined systolic (congestive) and diastolic (congestive) heart failure; E83.39 Other disorders of phosphorus metabolism; E78.2 Mixed hyperlipidemia; D63.1 Anemia in chronic kidney disease; K52.9 Noninfective gastroenteritis and colitis, unspecified; G40.909 Epilepsy, unspecified, not intractable, without status epilepticus; Z68.26 Body mass index [BMI] 26.0-26.9, adult; Z89.512 Acquired absence of left leg below knee; Z99.2 Dependence on renal dialysis; Z68.28 Body mass index [BMI] 28.0-28.9, adult; Z79.899 Other long term (current) drug therapy; Z79.4 Long term (current) use of insulin; Z89.012 Acquired absence of left thumb; Z86.718 Personal history of other venous thrombosis and embolism
CPT/HCPCS: 36415; 71045; 77003; 80048; 80053; 82948; 83036; 83605; 83690; 83735; 83880; 84100; 84443; 84484; 85025; 85610; 85730; 87040; 87081; 93005; 93308; 99285; A6248; J0610; J0690; J0885; J1644; J1815; J2001; J2250; J3010; J3490; J7030; P9046; Q0092

== ENCOUNTER 2020-08-15 14:54 | Inpatient (IN) | payer OTHER, SELFPAY ==
[~2020-08-15] VITALS: Ht 162.6 cm; Wt 55.3 kg
[~2020-08-15 14:54] MED LIST changes: -LEVO750T2 PO
--- NOTE | 2020-08-15 15:02 | NUR ---
BIBA TAKEN TO BED 14
[2020-08-15] MEDS ORDERED: NACL 0.9% 1,000 ML IV ONE ×2 (15:10→18:40)
[2020-08-15 15:16] VITALS: BP 69/44
--- NOTE | 2020-08-15 15:18 | NUR ---
49 y/o male biba from dialysis for 2 syncopal episodes witnessed by family at dialysis center. Per ems pt did not receive dialysis due to hypotension. Pt 80/40 bp on scene. Right groin dialysis shunt. Denies pain at this time. Pt has left BKA and right AKA. Awake and alert. Patient positioned for comfort. medhx: HTN, DM, ESRD
--- NOTE | 2020-08-15 15:21 | NUR ---
Patient taken to X-ray via [facility]
--- NOTE | 2020-08-15 15:41 | NUR ---
20G IV placed to right AC with good blood return
--- NOTE | 2020-08-15 15:42 | NUR ---
Lab at bedside for blood draw.
[2020-08-15 16:18] LABS: BASOPHILS # (AUTO) 0.1 K/uL (0.00-0.22); BASOPHILS % (AUTO) 1.3 % (0.0-2.0); EOSINOPHILS # (AUTO) 0.3 K/uL (0-0.4); HEMATOCRIT 28.8 % (36-52); HEMOGLOBIN 9.5 g/dL (12.0-18.0); LYMPHOCYTES # (AUTO) 2.8 K/uL (2.0-11.5); LYMPHOCYTES % (AUTO) 25.4 % (20.5-51.1); MEAN CORPUSCULAR HEMOGLOBIN 32 pg (27-31); MEAN CORPUSCULAR HGB CONC 33 g/dL (33-37); MONOCYTES # (AUTO) 0.6 K/uL (0.8-1.0); MONOCYTES % (AUTO) 5.6 % (1.7-9.3); NEUTROPHILS # (AUTO) 7.2 K/uL (1.8-7.7); NEUTROPHILS % (AUTO) 64.7 % (42.2-75.2); PLATELET COUNT (AUTO) 126 K/uL (140-450); RED BLOOD CELL COUNT(AUTO) 2.97 MIL/uL (4.20-6.10); RED CELL DISTRIBUTION WIDTH 17.8 % (11.6-13.7); WHITE BLOOD COUNT (AUTO) 11.2 K/uL (4.8-10.8)
[2020-08-15 16:31] LABS: ALBUMIN 4.6 g/dL (3.4-5.0); ANION GAP 24.1 (8-16); CARBON DIOXIDE 17.8 mmol/L (21-32); POTASSIUM 4.9 mmol/L (3.5-5.1); TOTAL BILIRUBIN 0.5 mg/dL (0.0-1.0)
[2020-08-15 16:35] LABS: CREATININE 15.7 mg/dL (0.6-1.3)
[2020-08-15 16:38] LABS: PROTHROMBIN TIME 10.4 secs (10.8-13.4)
--- NOTE | 2020-08-15 16:54 | NUR ---
IV d/c, unable to obtain access at this time. Dr Herron made aware.
--- NOTE | 2020-08-15 17:52 | NUR ---
Patient awake and alert. No complaints at this time. Positioned for comfort.
--- NOTE | 2020-08-15 19:21 | NUR ---
Report given to SUNDAR Campbell. Transfer of care at this time
--- NOTE | 2020-08-15 19:23 | NUR ---
RECIVED REPORT FROM MARTIN KWOK, CONTINUATION OF CARE.
--- NOTE | 2020-08-15 20:08 | NUR ---
PATIENT BP RECHECKED AND 57/43. PER ERMD GIVE 1 MORE BOLUS OF NS 1L 0.9%. ACCUCHECK: 78. 2 ORANGE JUICES GIVEN. PATIENT A&O X4, BED LOCKED AND I NLOWEST POSITION. R EJ 18G PATENT.
[2020-08-15] MEDS ORDERED: ASPIRIN 325 MG TAB PO ONE (20:40)
[2020-08-15] MEDS ORDERED: VANCOMYCIN 1,000 MG in DEXTROSE 5% 250 ML IV ONE (20:55)
[2020-08-15] MEDS ORDERED: PIPERACILLIN/TAZOBACTAM 3.375 GM in DEXTROSE 5% 50 ML IV ONE (20:55)
[2020-08-15] MEDS ORDERED: NOREPINEPHRINE 4 MG in DEXTROSE 5% 250 ML IV ONE (20:55)
[2020-08-15] MEDS ORDERED: NOREPINEPHRINE 4 MG/4 ML VIAL IV ONE (21:07)
[2020-08-15] MEDS ORDERED: PIPERACILLIN/TAZOBACTAM 3.375 GM VIAL IV ONE (21:08)
[2020-08-15] MEDS ORDERED: diphenhydrAMINE 50 MG/ML VIAL IVP ONE (22:10)
[2020-08-15] MEDS ORDERED: MORPHINE SULFATE 2 MG/ML SYR IVP PRN (22:15)
[2020-08-15] MEDS ORDERED: ACETAMINOPHEN 325 MG TAB PO PRN (22:15)
[2020-08-15] MEDS: NACL 0.9% 1,000 ML IV SCH (22:15)
[2020-08-15] MEDS ORDERED: VANCOMYCIN PER PHARMACY MC PRN (22:20)
--- NOTE | 2020-08-15 23:27 | NUR ---
Fabián dunbar in [facility] - 08/16/20 at 0037 by [email or web address] CONSENT SIGNED FOR CENTRAL LINE.
--- NOTE | 2020-08-15 23:27 | NUR ---
PATIENT REFUSED CENTRAL LINE.
[2020-08-16] VITALS (12 sets, daily range): BP systolic 82–133; BP diastolic 52–88
[2020-08-16] MEDS ORDERED: VANCOMYCIN 1,000 MG VIAL ONE (00:41)
--- NOTE | 2020-08-16 00:42 | NUR ---
PERNIEAL CARE PROVIDED, SKIN LEFT CLEAN AND DRY, PATIENT ABLE TO ASSIST WITH REPOSITIONING OF SELF.
[2020-08-16] MEDS ORDERED: VANCOMYCIN 1GM/DEXT 5% PREMIX 200 ML IV ONE (01:00)
--- NOTE | 2020-08-16 03:00 | NUR ---
RECIVED NEW ORDERS FOR PATIENT FROM DR. LACEY.
--- NOTE | 2020-08-16 05:26 | NUR ---
Patient appears to be resting comfortably in bed. Vital Signs within normal limits. Respirations even and unlabored.
--- NOTE | 2020-08-16 07:02 | NUR ---
RECIVED CALL FROM DR.SAMUEL HERNANDEZ- FURNITURE MOVER HELPER AND STATED TO CALL [facility]IAL[facility] TO GET DIALYSIS FOR PATIENT TODAY. STATES TO CALL HIM FOR ORDER.
[2020-08-16] MEDS ORDERED: VANCOMYCIN PER PHARMACY MC PRN (07:10)
[2020-08-16] MEDS ORDERED: VANCOMYCIN 1GM/DEXT 5% PREMIX 200 ML IV SCH (07:10)
--- NOTE | 2020-08-16 07:31 | NUR ---
REPORT GIVEN TO BURT KWOK, TRANSFER OF CARE.
[2020-08-16] MEDS: MIDODRINE 5 MG TAB PO SCH ×3 (07:51→18:50)
--- NOTE | 2020-08-16 08:32 | NUR ---
CALLED FOR PAGER TO DR LORENZO REGARDING PT NOT HAVING CENTRAL LINE, WAITING FOR CALL BACK
[2020-08-16] MEDS: NACL 0.9% 1,000 ML IV SCH (08:33)
[2020-08-16] MEDS ORDERED: ENOXAPARIN 40 MG/0.4 ML SYR SUBQ SCH (09:00)
--- NOTE | 2020-08-16 09:00 | NUR ---
PT ALERT AND AWAKE, BREATHING EVEN AND UNLABORED. PT ATE BREAKFAST, CHANGED GOWN AND CLEANED.
--- NOTE | 2020-08-16 09:54 | NUR ---
PATIENT HAS BEEN SCREENED AND CATEGORIZED MODERATE NUTRITION RISK. PATIENT WILL BE SEEN WITHIN 3-5 DAYS OF ADMISSION. 08/18/20 08/20/[address]
[2020-08-16] MEDS: ASPIRIN 81 MG TAB.CHEW PO SCH (10:06)
--- NOTE | 2020-08-16 10:13 | NUR ---
Patient will be admitted to care of Dr Clay. Admited to ICU. Will go to room 131. Belongings list completed. Report to Jaron KWOK.
--- NOTE | 2020-08-16 10:14 | NUR ---
PRIMARY RN MAGDA MADE AWARE OF NEPHROLOGY STATEMENT, GIVEN NUMBER FOR DR HERNANDEZ
[2020-08-16 10:17] LABS: BASOPHILS # (AUTO) 0.1 K/uL (0.00-0.22); BASOPHILS % (AUTO) 0.9 % (0.0-2.0); EOSINOPHILS # (AUTO) 0.2 K/uL (0-0.4); EOSINOPHILS % (AUTO) 3.1 % (0.0-4.0); HEMATOCRIT 32.9 % (36-52); HEMOGLOBIN 10.7 g/dL (12.0-18.0); LYMPHOCYTES # (AUTO) 1.4 K/uL (2.0-11.5); LYMPHOCYTES % (AUTO) 19.5 % (20.5-51.1); MEAN CORPUSCULAR HEMOGLOBIN 32 pg (27-31); MEAN CORPUSCULAR HGB CONC 32 g/dL (33-37); MEAN CORPUSCULAR VOLUME 98.4 fL (80-94); MONOCYTES # (AUTO) 0.4 K/uL (0.8-1.0); MONOCYTES % (AUTO) 5.7 % (1.7-9.3); NEUTROPHILS % (AUTO) 70.8 % (42.2-75.2); PLATELET COUNT (AUTO) 109 K/uL (140-450); RED BLOOD CELL COUNT(AUTO) 3.34 MIL/uL (4.20-6.10); RED CELL DISTRIBUTION WIDTH 17.8 % (11.6-13.7); WHITE BLOOD COUNT (AUTO) 7.1 K/uL (4.8-10.8)
--- NOTE | 2020-08-16 10:30 | NUR ---
SOCIAL WORK NOTE: Patient's Orientation Unable To Assess Information Provided By KATELYN LA Comments SW WAS UNABLE TO MEET PATIENT AT BEDSIDE DUE TO MEDICAL CONDITION. SW COMPLETED ASSESSMENT WITH PATIENT'S NIECE. Security Management Specialist, Realtionship and Phone Number YUMIKO ROMANO NIECE [phone] GARY TAI NIECE [phone] Healthcare Power of Scratcher Tender No Does Patient Have a POLST No Identifying Problems No Social Work Triggers Is A Social Work Consult Needed No Mandate Report Filed No Explanation Of Identifying Problems PATIENT IS A 49-YEAR-OLD MALE ADMITTED FOR SEPSIS AND SEPTIC SHOCK. PATIENT HAS PMHX OF DIABETES, HYPERTENSION, RENAL DISEASE, AND SEIZURES. Admitted From Home Pre-Admission Level Of Functioning Status Total Care Prior Resources/Services Used In Last 12 Months No Prior Resources Used Prior DME Wheelchair Dialysis Hemodialysis Name And Phone Number of Dialysis Facility [facility] Living Situation Apartment Lives With Family Patient Had Caregiver No Home Support CG/Fam Able To Meet Need Financial Issues No Known Financial Issue Referral To The Financial Counselor Needed No Factors/Needs No D/C Needs Identified Pt/Rep Participated In Discharge Plan Yes Patient/Family Agress With Discharge Plan Yes Discharge Plan Comments TENTATIVE DISCHARGE PLAN IS FOR PATIENT TO RETURN HOME. DC Plan Status Initiated
[2020-08-16 10:34] LABS: ALBUMIN 4.4 g/dL (3.4-5.0); CARBON DIOXIDE 17.6 mmol/L (21-32); POTASSIUM 4.6 mmol/L (3.5-5.1); TOTAL BILIRUBIN 0.5 mg/dL (0.0-1.0)
--- NOTE | 2020-08-16 10:35 | NUR ---
PT TAKEN TO FLOOR AT THIS TIME
[2020-08-16 10:40] LABS: CREATININE 15.7 mg/dL (0.6-1.3)
--- NOTE | 2020-08-16 11:30 | NUR ---
RECEIVED REPORT FROM ER NURSE FOR CONTINUITY OF CARE. PT IN BED, SUPINE POSITION. HOB ELEVATED. AOX4 NO SOB, NO APPARENT DISTRESS, NO C/O PAIN. ON ROOM AIR, O2SAT 98%. WITH RIGHT EJ 18G, RUNNING LEVOPHED 1MCG. WITH DIALYSIS CATH ON LEFT GROIN. SAFETY PRECAUTIONS IN PLACE. WILL CONT TO MONITOR.
[2020-08-16] MEDS ORDERED: Z-GUARD PASTE TP ONE (15:06)
[2020-08-16] MEDS ORDERED: Z-GUARD PASTE TP SCH (15:20)
--- NOTE | 2020-08-16 18:00 | NUR ---
FINISHED HD, NO ADVERSE REACTIONS NOTED
[2020-08-16] MEDS: NOREPINEPHRINE 4 MG in DEXTROSE 5% 250 ML IV PRN (19:30)
--- NOTE | 2020-08-16 19:30 | NUR ---
RECEIVED REPORT FROM DAY NURSE; PT AAOX4, FOLLOWING COMMANDS, PT ON LEVOPHED DRIP @ 6 MCG/MIN, DENIES LIGHTHEADEDNESS, DIZZINESS. PT ABLE TO MOVE IN BED, BILATERAL AKA NOTED. HD ACCESS TO L GROIN/THIGH, OLD AV SHUNT TO L FA NOTED. NO EDEMA. PT ON ROOM AIR 93%, DENIES SOB/CHEST PAIN. ABD SOFT NON DISTENDED. TOLERATING PO INTAKE. PT ANURIC, INCONTINENT TO STOOL. SKIN INTACT, REDNESS TO JACQUE AREA NOTED. IV TO R EJ NOTED, 18 G, PATENT. BED LOCKED IN LOWEST POSITION WILL CONTINUE TO OBSERVE.
[2020-08-16] MEDS: HYDROcodone/APAP 5/325 MG 1 TAB TAB PO PRN (20:04)
[2020-08-16] MEDS: levETIRAcetam 500 MG TAB PO SCH (20:04)
[2020-08-16] MEDS ORDERED: cefTRIAXone 1,000 MG VIAL ONE (21:07)
[2020-08-17] VITALS (23 sets, daily range): BP systolic 88–124; BP diastolic 50–86
[2020-08-17] MEDS: MIDODRINE 5 MG TAB PO SCH ×3 (07:00→19:05)
--- NOTE | 2020-08-17 08:30 | NUR ---
REPORT GIVEN TO DAY SHIFT FOR CONTINUITY OF CARE.
--- NOTE | 2020-08-17 08:30 | NUR ---
RECEIVED REPORT FROM NIGHTSHIFT NURSE. PT RESTING IN BED. ABLE TO MAKE NEEDS KNOWN. RESPIRATIONS EVEN AND UNLABORED WITH NO SOB OR RESPIRATORY DISTRESS. ON ROOM AIR, O2SAT 98%. LEJ 20G IS CLEAN, DRY, AND INTACT RUNNING LEVOPHED 2MCG. WITH DIALYSIS CATH ON LEFT GROIN. SAFETY PRECAUTIONS IN PLACE. WILL CONT TO MONITOR.
[2020-08-17] MEDS: ASPIRIN 81 MG TAB.CHEW PO SCH (09:18)
[2020-08-17] MEDS: PANTOPRAZOLE 40 MG TABEC PO SCH (09:19)
[2020-08-17] MEDS: levETIRAcetam 500 MG TAB PO SCH ×2 (09:19→21:00)
--- NOTE | 2020-08-17 09:30 | NUR ---
ADMINISTERED SCHED MED PRESCRIBED PER MD ORDER. PT TOLERATE WELL. MEDICATION EDUCATION PERFORMED. PT VERBALIZED UNDERSTANDING. SAFETY MEASURES IN PLACE. WILL CONTINUE TO MONITOR
[2020-08-17] MEDS: NACL 0.9% 1,000 ML IV SCH (10:30)
--- NOTE | 2020-08-17 13:38 | NUR ---
ADMINISTERED SCHED MED PRESCRIBED PER MD ORDER. PT TOLERATE WELL. MEDICATION EDUCATION PERFORMED. PT VERBALIZED UNDERSTANDING. SAFETY MEASURES IN PLACE. WILL CONTINUE TO MONITOR
[2020-08-17] MEDS: ONDANSETRON 4 MG/2 ML VIAL IVP PRN (16:16)
--- NOTE | 2020-08-17 16:18 | NUR ---
PT HAD AN EPISODE OF NAUSEA AND VOMITING AND REQUESTED ZOFRAN. ADMINISTERED PRN ZOFRAN PRESCRIBED PER MD ORDER. SAFETY MEASURES IN PLACE. WILL CONTINUE TO MONITOR
[2020-08-17] MEDS: NOREPINEPHRINE 4 MG in DEXTROSE 5% 250 ML IV PRN (17:44)
--- NOTE | 2020-08-17 20:36 | NUR ---
ENDORSED TO NIGHTSHIFT FOR CONTINUITY OF CARE
[2020-08-18] VITALS (22 sets, daily range): BP systolic 92–166; BP diastolic 47–93
[2020-08-18] MEDS: NACL 0.9% 1,000 ML IV SCH (05:03)
[2020-08-18] MEDS ORDERED: MIDODRINE 5 MG TAB ONE (05:19)
[2020-08-18] MEDS: MIDODRINE 5 MG TAB PO SCH ×3 (07:00→18:24)
[2020-08-18] MEDS: PANTOPRAZOLE 40 MG TABEC PO SCH (09:00)
[2020-08-18] MEDS: levETIRAcetam 500 MG TAB PO SCH ×2 (09:00→20:20)
[2020-08-18] MEDS: ASPIRIN 81 MG TAB.CHEW PO SCH (09:00)
[2020-08-18] MEDS ORDERED: cefTRIAXone 1,000 MG VIAL ONE (09:13)
--- NOTE | 2020-08-18 09:40 | NUR ---
WOUND CARE EVALUATION NOTE: SKIN ASSESSMENT DONE TO THIS 49 Y/O MALE PT. UPON ARRIVAL PT. IS VERY ANXIOUS DUE TO IV WAS PULLED OUT AND BLOODY SHEET OBSERVED. SKIN ASSESSED NO MORE BLEEDING AND NO OPEN ACTIVE WOUND. SACRALCOCCYX BLANCHABLE REDNESS, Z-GUARD WAS APPLIED. PRIMARY RN NOTIFIED OF IV WAS PULLED OUT AND POC DISCUSSED FOR SKIN CARE. RECOMMENDATIONS: CONTINUE TO FOLLOW PRESSURE INJURY PREVENTION INTERVENTIONS. -APPLY FOAM DRESSING TO SACRALCOCCYX PREVENTION -TURN AND REPOSITION PATIENT Q 2H -ASSESS AND MONITOR SKIN CONDITION DURING POSITION CHANGE -OFFLOAD BILATERAL HEELS BY PLACING PILLOWS UNDER CALVES AT ALL TIMES, UNLESS OTHERWISE CONTRAINDICATED -PRESSURE REDISTRIBUTION BY PLACING PILLOWS AND OFFLOADING SACRALCOCCYX -KEEP SKIN CLEAN AND DRY AT ALL TIMES.
--- NOTE | 2020-08-18 10:58 | NUR ---
REPORT RECEIVED FROM JOSEPHINE KWOK AT THIS TIME, PATIENT PULLED OUT RIGHT EJ. NEW RIGHT EJ PLACED. LEVOPHED INFUSION RESTARTED AT 5MCG
--- NOTE | 2020-08-18 11:30 | NUR ---
MADE AWARE THAT PATIENT REFUSED DIALYSIS EARLIER IN THE AM, PATIENT RESCHEDULED FOR DIALYSIS TOMORROW
--- NOTE | 2020-08-18 18:01 | NUR ---
PATIENT HAVING ECHOCARDIOGRAM DONE AT THIS TIME
[2020-08-18] MEDS: ONDANSETRON 4 MG/2 ML VIAL IVP PRN (18:24)
--- NOTE | 2020-08-18 19:23 | NUR ---
ENDORSED TO NIGHTSHIFT FOR CONTINUITY OF CARE
--- NOTE | 2020-08-18 19:35 | NUR ---
RECEIVED REPORT FROM DAY SHIFT NURSE. PT IN BED EATING DINNER. PT AAOX4 AND ABLE TO MAKE NEEDS KNOWN. RESPIRATIONS EVEN AND UNLABORED TO ROOM AIR. ABDOMEN IS SOFT AND NON-TENDER, ACTIVE BOWEL SOUNDS NOTED. SKIN IS WARM, DRY, AND INTACT. PT WITH R IJ CATHETER IN PLACE, PATENT AND INTACT. IVF INFUSING WELL, PT CURRENTLY ON LEVOPHED 5MCG/MIN. PT ON HEMODIALYSIS, PT WITH LEFT AV SHUNT AND LEFT GROIN DIALYSIS PORT IN PLACE. PT ALSO BLIND AND DEAF ON RIGHT SIDE, WITH RIGHT AKA AND LEFT BKA. PT DENIES ANY PAIN OR DISCOMFORT AT THIS TIME. NO REQUESTS MADE. SAFETY MEASURES IN PLACE, CALL LIGHT WITHIN REACH. WILL CONTINUE TO MONITOR. Addendum: 08/18/20 at 2010 by Chava Kendrick RN PT WITH RIGHT EJ
[2020-08-18] MEDS: BLOOD GLUCOSE MONITORING 1 DEV DEV FS SCH (20:40)
--- NOTE | 2020-08-18 20:40 | NUR ---
VS STABLE. SCHEDULED MEDS GIVEN ORDERED. BLOOD SUGAR 160. INSULIN COVERAGE GIVEN PER ORDER. PT DENIES ANY PAIN OR DISCOMFORT AT THIS TIME. NO REQUESTS MADE. SAFETY MEASURES IN PLACE. CALL LIGHT WITHIN REACH. WILL CONTINUE TO MONITOR.
[2020-08-18] MEDS: INSULIN LISPRO SLIDING SCALE 100 UNITS/ML VIAL SUBQ PRN (20:41)
--- NOTE | 2020-08-18 21:56 | NUR ---
PT ASLEEP. IVF AND DRIP INFUSING WELL. PT NOT IN DISTRESS. NO S/SX OF PAIN OR DISCOMFORT NOTED. PT KEPT COMFORTABLE. CALL LIGHT WITHIN REACH. WILL CONTINUE TO MONITOR.
[2020-08-18] MEDS: NOREPINEPHRINE 4 MG in DEXTROSE 5% 250 ML IV PRN (23:04)
[2020-08-19] VITALS (24 sets, daily range): BP systolic 54–142; BP diastolic 27–104
--- NOTE | 2020-08-19 00:14 | NUR ---
PT SLEEPING. VISIBLE CHEST RISE AND FALL NOTED. IVF INFUSING WELL. NO S/SX OF PAIN OR DISCOMFORT NOTED. PT KEPT COMFORTABLE. CALL LIGHT WITHIN REACH. WILL CONTINUE TO MONITOR.
--- NOTE | 2020-08-19 02:19 | NUR ---
PT RESTING. PT DENIES ANY PAIN OR DISCOMFORT AT THIS TIME. NO REQUESTS MADE. PT NOT IN DISTRESS. IVF AND LEVOPHED RUNNING WELL. SAFETY MEASURES IN PLACE, CALL LIGHT WITHIN REACH. WILL CONTINUE TO MONITOR.
--- NOTE | 2020-08-19 04:26 | NUR ---
PT IN BED SLEEPING. VS STABLE. NO S/SX OF PAIN OR DISCOMFORT NOTED. PT NOT IN DISTRESS. VISIBLE CHEST RISE AND FALL NOTED. SAFETY MEASURES IN PLACE. CALL LIGHT WITHIN REACH. WILL CONTINUE TO MONITOR.
--- NOTE | 2020-08-19 06:45 | NUR ---
BLOOD SUGAR 126. NO INSULIN COVERAGE NEEDED.
[2020-08-19] MEDS: MIDODRINE 5 MG TAB PO SCH ×3 (06:51→18:23)
[2020-08-19] MEDS: NACL 0.9% 1,000 ML IV SCH ×2 (06:53→22:07)
[2020-08-19] MEDS: BLOOD GLUCOSE MONITORING 1 DEV DEV FS SCH ×4 (07:02→21:00)
--- NOTE | 2020-08-19 07:15 | NUR ---
HANDOFF RECEIVED FROM GEOPHYSICS SCIENTIST RN. PT IS ON RA. PT HAS R EJ 18 G, L FEMORAL FOR HD. LEVOPHED IS RUNNING AT 5 MCG/MIN, NS 40 ML/HR. PT IS SR AT THIS TIME. PT IS ON REGULAR DIET. HOB IS 30 DEG, BED IN LOW LOCKED POSITION.
--- NOTE | 2020-08-19 07:55 | NUR ---
ENDORSED TO DAY SHIFT NURSE FOR CONTINUITY OF CARE
[2020-08-19 08:32] LABS: BASOPHILS # (AUTO) 0.1 K/uL (0.00-0.22); BASOPHILS % (AUTO) 0.8 % (0.0-2.0); EOSINOPHILS # (AUTO) 0.4 K/uL (0-0.4); HEMATOCRIT 30.7 % (36-52); HEMOGLOBIN 10.2 g/dL (12.0-18.0); LYMPHOCYTES # (AUTO) 1.4 K/uL (2.0-11.5); LYMPHOCYTES % (AUTO) 12.9 % (20.5-51.1); MEAN CORPUSCULAR HEMOGLOBIN 32 pg (27-31); MEAN CORPUSCULAR HGB CONC 33 g/dL (33-37); MEAN CORPUSCULAR VOLUME 96.6 fL (80-94); MONOCYTES # (AUTO) 0.5 K/uL (0.8-1.0); MONOCYTES % (AUTO) 4.5 % (1.7-9.3); NEUTROPHILS # (AUTO) 8.5 K/uL (1.8-7.7); NEUTROPHILS % (AUTO) 77.8 % (42.2-75.2); PLATELET COUNT (AUTO) 111 K/uL (140-450); RED BLOOD CELL COUNT(AUTO) 3.18 MIL/uL (4.20-6.10); RED CELL DISTRIBUTION WIDTH 17.5 % (11.6-13.7); WHITE BLOOD COUNT (AUTO) 10.9 K/uL (4.8-10.8)
[2020-08-19 08:38] LABS: POTASSIUM 4.4 mmol/L (3.5-5.1)
[2020-08-19 08:45] LABS: CREATININE 12.4 mg/dL (0.6-1.3)
[2020-08-19 08:48] LABS: ANION GAP 21.5 (8-16); CARBON DIOXIDE 18.9 mmol/L (21-32)
[2020-08-19] MEDS: levETIRAcetam 500 MG TAB PO SCH ×2 (09:14→21:27)
[2020-08-19] MEDS: ASPIRIN 81 MG TAB.CHEW PO SCH (09:14)
[2020-08-19] MEDS: PANTOPRAZOLE 40 MG TABEC PO SCH (09:15)
--- NOTE | 2020-08-19 10:15 | NUR ---
MEDICATIONS ADMINISTERED PER ORDER. PT TOLERATED WELL. PT SITTING UP IN BED EATING BREAKFAST. TEMPERATURE 96.8 TEMPORALLY. PT ALERT AND ORIENTED X 4.
--- NOTE | 2020-08-19 11:11 | NUR ---
PER DR. MCKEON, NO NEED FOR PICC LINE. MAP OF [address] MCKEON. LEVOPHED HELD AT THIS TIME.
--- NOTE | 2020-08-19 11:25 | NUR ---
REASSESSED PT AFTER STOPPING LEVOPHED DRIP. PT BP 65/41, BUT PT ASYMPTOMATIC ALERT AND ORIENTED X4. DR. MCKEON STILL HERE IN ICU OVERFLOW AND MADE AWARE. PT BP NOW 76/45. PER DR. MCKEON, KEEP LEVOPHED HELD LONG PT ASYMPTOMATIC.
--- NOTE | 2020-08-19 12:23 | NUR ---
DISCHARGE PLANNING: PER PRIMARY RN IWONA, THEY ARE PAGING DR. MCKENO AT THIS TIME DUE TO PATIENT'S BP WENT DOWN TO THE 50'S AND LEVOPHED HAVE BEEN HELD SINCE LAST NIGHT. I ALSO ASKED HER IF [facility] HAS SEEN THE PATIENT, THERE IS DIALYSIS ORDER BUT NO PROGRESS NOTES. PER RN WILL FOLLOW UP WITH DR. HERNANDEZ. WILL FOLLOW UP. Addendum: 08/25/20 at 1411 by Lisset Mays CM DC TALENT ENGINEER: CONTACTED [facility] [phone] AND SPOKE TO THANH TO NOTIFY THEM THAT PATIENT WILL BE DISCHARGED TODAY. FAXED DC SUMMARY AND NEGATIVE COVID RESULTS. PATIENTS CHAIR TIME IS AYESHA INTERIANO,SAT AT 12:35 PM
--- NOTE | 2020-08-19 12:43 | NUR ---
SPOKE TO DR. MCKEON AT PT BP 50/29. OKAY TO START LOW DOSE OF LEVOPHED WITHOUT PICC LINE. STARTED AT 2 MCG/MIN. Addendum: 08/19/20 at 1244 by Leona Tilley RN RN PT REMAINS ASYMPTOMATIC
--- NOTE | 2020-08-19 17:41 | NUR ---
[employer]IR [employer] PROFESSIONALS AT BEDSIDE. PER [employer], UNABLE TO COMPLETE DIALYSIS YESTERDAY DUE TO LOW BP. MADE RN AWARE OF PT LOW BP AND 2 MCG/MIN LEVOPHED, AND DR. MCKEON'S WISH TO KEEP PT ON LOW DOSE OF LEVOPHED DUE TO NO PICC LINE BEING IN PLACE.
--- NOTE | 2020-08-19 19:30 | NUR ---
HANDOFF GIVEN TO SECURITY EXPERT RN FOR CONTINUITY OF CARE
[2020-08-20] VITALS (20 sets, daily range): BP systolic 86–129; BP diastolic 40–79
[2020-08-20] MEDS: NOREPINEPHRINE 4 MG in DEXTROSE 5% 250 ML IV PRN (06:40)
[2020-08-20] MEDS: MIDODRINE 5 MG TAB PO SCH ×3 (07:01→18:24)
[2020-08-20] MEDS: ONDANSETRON 4 MG/2 ML VIAL IVP PRN ×2 (07:02→12:56)
--- NOTE | 2020-08-20 07:20 | NUR ---
HANDOFF RECEIVED FROM SUPERVISOR POWDERED SUGAR RN. PT IS ON RA. PT HAS R EJ 18 G, L FEMORAL FOR HD. LEVOPHED IS RUNNING AT 7 MCG/MIN, NS 40 ML/HR. PT IS SR AT THIS TIME. PT IS ON REGULAR DIET. HOB IS 30 DEG, BED IN LOW LOCKED POSITION.
[2020-08-20] MEDS: BLOOD GLUCOSE MONITORING 1 DEV DEV FS SCH ×4 (07:30→21:00)
--- NOTE | 2020-08-20 08:25 | NUR ---
PT HAD LARGE LOOSE, BM. WHILE CLEANING PT, NOTED EJ 18 G HAD BEEN PULLED OUT. INSERTED NEW IV BUT DR. MCKEON MADE AWARE AND PER HIM, OKAY TO ATTEMPT PICC LINE. CONSENT OBTAINED.
[2020-08-20] MEDS: ASPIRIN 81 MG TAB.CHEW PO SCH (09:00)
--- NOTE | 2020-08-20 09:02 | NUR ---
MEDICATIONS ADMINISTERED PER ORDER. PT TOLERATED WELL. TEMPERATURE 96.2 TEMPORALLY.
[2020-08-20] MEDS: levETIRAcetam 500 MG TAB PO SCH ×2 (09:23→21:00)
[2020-08-20] MEDS: PANTOPRAZOLE 40 MG TABEC PO SCH (09:23)
[2020-08-20] MEDS: INSULIN LISPRO SLIDING SCALE 100 UNITS/ML VIAL SUBQ PRN (09:24)
[2020-08-20 11:06] LABS: BASOPHILS % (AUTO) 0.6 % (0.0-2.0); EOSINOPHILS # (AUTO) 0.2 K/uL (0-0.4); EOSINOPHILS % (AUTO) 3.2 % (0.0-4.0); HEMATOCRIT 26.7 % (36-52); HEMOGLOBIN 8.9 g/dL (12.0-18.0); LYMPHOCYTES # (AUTO) 0.8 K/uL (2.0-11.5); LYMPHOCYTES % (AUTO) 10.3 % (20.5-51.1); MEAN CORPUSCULAR HEMOGLOBIN 32 pg (27-31); MEAN CORPUSCULAR HGB CONC 34 g/dL (33-37); MEAN CORPUSCULAR VOLUME 95.9 fL (80-94); MONOCYTES # (AUTO) 0.3 K/uL (0.8-1.0); MONOCYTES % (AUTO) 3.8 % (1.7-9.3); NEUTROPHILS % (AUTO) 82.1 % (42.2-75.2); PLATELET COUNT (AUTO) 100 K/uL (140-450); RED BLOOD CELL COUNT(AUTO) 2.78 MIL/uL (4.20-6.10); RED CELL DISTRIBUTION WIDTH 17.8 % (11.6-13.7); WHITE BLOOD COUNT (AUTO) 7.3 K/uL (4.8-10.8)
[2020-08-20 11:33] LABS: ALBUMIN 3.9 g/dL (3.4-5.0); ANION GAP 15.4 (8-16); CARBON DIOXIDE 25.6 mmol/L (21-32); TOTAL BILIRUBIN 0.4 mg/dL (0.0-1.0)
[2020-08-20 11:38] LABS: CREATININE 8.3 mg/dL (0.6-1.3)
--- NOTE | 2020-08-20 19:24 | NUR ---
08/20/2020 RD INITIAL ASSESSMENT COMPLETED PLEASE REFER TO NUTRITION ASSESSMENT UNDER CARE ACTIVITY FOR ESTIMATED NUTRITIONAL NEEDS. CONSIDER RENAL DIET RD TO FOLLOW-UP IN 3-5 DAYS PATIENT IS MODERATE RISK. PARMJIT SHEPPARD, RD
--- NOTE | 2020-08-20 20:25 | NUR ---
HANDOFF GIVEN TO DATA COLLECTION TECHNICIAN RN FOR CONTINUITY OF CARE
[2020-08-21] VITALS (21 sets, daily range): BP systolic 89–130; BP diastolic 40–82
[2020-08-21] MEDS: NACL 0.9% 1,000 ML IV SCH (05:53)
[2020-08-21] MEDS: MIDODRINE 5 MG TAB PO SCH ×3 (07:00→19:03)
[2020-08-21] MEDS: BLOOD GLUCOSE MONITORING 1 DEV DEV FS SCH ×4 (07:30→21:00)
--- NOTE | 2020-08-21 07:35 | NUR ---
RECEIVED A CALL FROM DR HERNANDEZ AND ORDER HD, SAID "PLEASE NOTIFY SUPERVISOR PIPELINE FOR PATIENT'S HD AND CALL HIM FOR AN ORDER". WILL CONTACT SUPERVISOR PIPELINE AFTER REPORT, AWAITING FOR MANAGER NEW PRODUCT RN ONYE TO GET REPORT.
--- NOTE | 2020-08-21 07:59 | NUR ---
NOTIFIED ELAN DEMAND PLANNING MANAGER THAT PATIENT HAS AN ORDER FOR HD TODAY, ELAN KWOK WAS AWARE.
[2020-08-21] MEDS ORDERED: VANCOMYCIN PER PHARMACY MC PRN (08:15)
[2020-08-21] MEDS: INSULIN LISPRO SLIDING SCALE 100 UNITS/ML VIAL SUBQ PRN (09:27)
[2020-08-21] MEDS: PANTOPRAZOLE 40 MG TABEC PO SCH (09:27)
[2020-08-21] MEDS: levETIRAcetam 500 MG TAB PO SCH ×2 (09:27→21:00)
[2020-08-21] MEDS: ASPIRIN 81 MG TAB.CHEW PO SCH (09:27)
--- NOTE | 2020-08-21 09:28 | NUR ---
CHECKED 0730 BLOOD GLUCOSE RCEIVED 158, 2 UNIT HUMALOG COVERED. ADMINISTERED SCHEDULED AM PO MEDS, MEDS EDUCATION PROVIDED, PATIENT SWALLOWED MEDS WELL WITH WATER. AWAITING FOR AM LAB TO ADMINISTER HEPARIN, PLT 100 FOR YESTERDAY. ASSISTED PATIENT TO SIT UP AND EAT BREAKFAST AT THIS TIME, NO SIGNS OF ACUTE DISTRESS NOTED. TELE MONITOR IN PLACE. SAFETY MEASURES IN PLACE. BED IN LOW POSITION, CALL LIGHT WITHIN REACH, INSTRUCTED PATIENT TO USE THE CALL LIGHT FOR ANY ASSISTANCE, AND PATIENT VERBALIZED OK.
--- NOTE | 2020-08-21 10:24 | NUR ---
CALLED [facility], NO ANSWER, LEFT A DETAILED MESSAGE TO RETURN CALL, AWAITING FOR CALL BACK.
--- NOTE | 2020-08-21 11:02 | NUR ---
RECEIVED CALL BACK FROM [facility], THE ASSIGNED PICC RN IS BRENDA UNSURE ABOUT ETA.
[2020-08-21 11:04] LABS: BASOPHILS # (AUTO) 0.1 K/uL (0.00-0.22); BASOPHILS % (AUTO) 1.3 % (0.0-2.0); EOSINOPHILS # (AUTO) 0.4 K/uL (0-0.4); EOSINOPHILS % (AUTO) 5.4 % (0.0-4.0); HEMATOCRIT 25.8 % (36-52); HEMOGLOBIN 8.6 g/dL (12.0-18.0); LYMPHOCYTES # (AUTO) 1.2 K/uL (2.0-11.5); LYMPHOCYTES % (AUTO) 18.3 % (20.5-51.1); MEAN CORPUSCULAR HEMOGLOBIN 32 pg (27-31); MEAN CORPUSCULAR HGB CONC 33 g/dL (33-37); MEAN CORPUSCULAR VOLUME 96.5 fL (80-94); MONOCYTES # (AUTO) 0.3 K/uL (0.8-1.0); MONOCYTES % (AUTO) 4.9 % (1.7-9.3); NEUTROPHILS # (AUTO) 4.7 K/uL (1.8-7.7); NEUTROPHILS % (AUTO) 70.1 % (42.2-75.2); PLATELET COUNT (AUTO) 94 K/uL (140-450); RED BLOOD CELL COUNT(AUTO) 2.67 MIL/uL (4.20-6.10); RED CELL DISTRIBUTION WIDTH 17.4 % (11.6-13.7); WHITE BLOOD COUNT (AUTO) 6.7 K/uL (4.8-10.8)
--- NOTE | 2020-08-21 11:30 | NUR ---
PATIENT HAS A MODERATE YELLOW LIQUID BM, PROVIDED HYGIENE CARE, CHANGED ALL DIRTY LINENS, USED PILLOWS TO OFFLOADED PRESSURE, PATIENT TOLERATED WELL. SAFETY MEASURES IN PLACE.
[2020-08-21 11:42] LABS: ALBUMIN 3.8 g/dL (3.4-5.0); ANION GAP 19.1 (8-16); CARBON DIOXIDE 23.3 mmol/L (21-32); POTASSIUM 4.4 mmol/L (3.5-5.1); TOTAL BILIRUBIN 0.4 mg/dL (0.0-1.0)
[2020-08-21 11:44] LABS: MAGNESIUM 1.7 mg/dL (1.8-2.4); PHOSPHORUS 6.5 mg/dL (2.5-4.9)
--- NOTE | 2020-08-21 11:47 | NUR ---
DR KAYE IS ROUNDING ON PATIENT.
--- NOTE | 2020-08-21 11:51 | NUR ---
PLT 94 FROM AM LAB, HEPARIN SUBQ HELD.
--- NOTE | 2020-08-21 11:53 | NUR ---
BLOOD GLUCOSE 150, NO COVERAGE NEEDED, PATIENT AWAKE AND WATCHING TV ON BED, NO SIGNS OF ACUTE DISTRESS NOTED.
[2020-08-21 12:01] LABS: CREATININE 9.4 mg/dL (0.6-1.3)
--- NOTE | 2020-08-21 12:31 | NUR ---
ZACH MACHINIST FIRST CLASS IS BY BEDSIDE AND PATIENT IS IN DIALYSIS NOW.
[2020-08-21] MEDS: NOREPINEPHRINE 4 MG in DEXTROSE 5% 250 ML IV PRN (12:46)
--- NOTE | 2020-08-21 12:46 | NUR ---
BP IS GETTING LOW DURING DIALYSIS 76/48 PULSE 60, RESTARTED LEVOPHED AT 2 MCG/MIN.
--- NOTE | 2020-08-21 14:39 | NUR ---
PATIENT IS STILL IN DIALYSIS, ZACH PUBLIC HEALTH EDUCATOR IS BY BEDSIDE.
--- NOTE | 2020-08-21 15:04 | NUR ---
10,000 UNIT HEPARIN PROVIDED TO [facility]ATE LAW ASSISTANT TO FLUSH PORTS.
[2020-08-21] MEDS ORDERED: VANCOMYCIN 750 MG in DEXTROSE 5% 250 ML IV SCH (17:00)
--- NOTE | 2020-08-21 17:45 | NUR ---
MIDLINE PLACED, AND PER BRENDA PICC RN, IT'S OK TO USE.
--- NOTE | 2020-08-21 17:57 | NUR ---
PATIENT HAS A MODERATE YELLOW SOFT BM, PROVIDED HYGIENE CARE, CHANGED ALL DIRTY LINENS, APPLIED Z-GUARD, PATIENT TOLERATED WELL. NO SIGNS OF ACUTE DISTRESS NOTED. SAFETY MEASURES IN PLACE.
--- NOTE | 2020-08-21 19:03 | NUR ---
ADMINISTERED SCHEDULED MED, PATIENT IS EATING DINNER ON BED. NO SIGNS OF ACUTE DISTRESS NOTED. SAFETY MEASURES IN PLACE.
--- NOTE | 2020-08-21 19:23 | NUR ---
ENDORSED PATIENT TO ROLLER COASTER ENGINEER NURSE ONYE FOR CONTINUITY OF CARE. PATIENT IS IN STABLE CONDITION. SAFETY MEASURES IN PLACE.
[2020-08-22] VITALS (21 sets, daily range): BP systolic 72–136; BP diastolic 42–83
[2020-08-22] MEDS: NACL 0.9% 1,000 ML IV SCH (05:03)
[2020-08-22 06:49] LABS: ANION GAP 13.9 (8-16); CARBON DIOXIDE 29.1 mmol/L (21-32)
[2020-08-22 07:25] LABS: CREATININE 5.7 mg/dL (0.6-1.3)
[2020-08-22] MEDS: BLOOD GLUCOSE MONITORING 1 DEV DEV FS SCH ×4 (07:30→21:00)
--- NOTE | 2020-08-22 07:55 | NUR ---
HANDOFF RECEIVED FROM MAIL HANDLER ASSISTANT RN. PT IS ALERT AND ORIENTED X 4. PT IS ON RA. PT HAS WANDA MIDLINE, L FEMORAL FOR HD. LEVOPHED IS RUNNING AT 5 MCG/MIN, NS 40 ML/HR. PT IS SR AT THIS TIME. PT IS ON REGULAR DIET. HOB IS 30 DEG, BED IN LOW LOCKED POSITION.
[2020-08-22] MEDS: PANTOPRAZOLE 40 MG TABEC PO SCH (08:45)
[2020-08-22] MEDS: levETIRAcetam 500 MG TAB PO SCH ×2 (08:45→21:00)
[2020-08-22] MEDS: MIDODRINE 5 MG TAB PO SCH ×3 (08:46→18:21)
[2020-08-22] MEDS: ASPIRIN 81 MG TAB.CHEW PO SCH (08:47)
[2020-08-22] MEDS: NOREPINEPHRINE 4 MG in DEXTROSE 5% 250 ML IV PRN (09:45)
[2020-08-22 11:06] LABS: BASOPHILS # (AUTO) 0.1 K/uL (0.00-0.22); BASOPHILS % (AUTO) 0.9 % (0.0-2.0); EOSINOPHILS # (AUTO) 0.3 K/uL (0-0.4); EOSINOPHILS % (AUTO) 4.5 % (0.0-4.0); HEMATOCRIT 22.7 % (36-52); HEMOGLOBIN 7.4 g/dL (12.0-18.0); LYMPHOCYTES % (AUTO) 16.9 % (20.5-51.1); MEAN CORPUSCULAR HEMOGLOBIN 32 pg (27-31); MEAN CORPUSCULAR HGB CONC 33 g/dL (33-37); MONOCYTES # (AUTO) 0.4 K/uL (0.8-1.0); MONOCYTES % (AUTO) 6.9 % (1.7-9.3); NEUTROPHILS % (AUTO) 70.8 % (42.2-75.2); PLATELET COUNT (AUTO) 85 K/uL (140-450); RED BLOOD CELL COUNT(AUTO) 2.34 MIL/uL (4.20-6.10); RED CELL DISTRIBUTION WIDTH 17.8 % (11.6-13.7); WHITE BLOOD COUNT (AUTO) 5.7 K/uL (4.8-10.8)
--- NOTE | 2020-08-22 19:26 | NUR ---
HANDOFF GIVEN TO CLINICAL SERVICES CONSULTANT RN FOR CONTINUITY OF CARE
[2020-08-23] VITALS (23 sets, daily range): BP systolic 75–128; BP diastolic 32–77
[2020-08-23] MEDS: NACL 0.9% 1,000 ML IV SCH (05:57)
[2020-08-23 06:47] LABS: ANION GAP 16.4 (8-16); CARBON DIOXIDE 23.1 mmol/L (21-32); POTASSIUM 4.5 mmol/L (3.5-5.1)
[2020-08-23 07:26] LABS: CREATININE 7.4 mg/dL (0.6-1.3)
--- NOTE | 2020-08-23 07:35 | NUR ---
RECEIVED REPORT FROM WEBSPHERE ADMINISTRATOR NURSE. PATIENT IN CRITICAL CONDITION.
[2020-08-23] MEDS: BLOOD GLUCOSE MONITORING 1 DEV DEV FS SCH ×4 (08:15→21:45)
[2020-08-23] MEDS: PANTOPRAZOLE 40 MG TABEC PO SCH (08:57)
[2020-08-23] MEDS: MIDODRINE 5 MG TAB PO SCH ×4 (08:57→23:42)
[2020-08-23] MEDS: levETIRAcetam 500 MG TAB PO SCH ×2 (08:58→20:45)
[2020-08-23] MEDS: ASPIRIN 81 MG TAB.CHEW PO SCH (08:58)
--- NOTE | 2020-08-23 08:58 | NUR ---
SCHEDULED MEDICATIONS DUE GIVEN. WILL CONTINUE TO MONITOR.
[2020-08-23] MEDS: Z-GUARD PASTE TP SCH (12:18)
--- NOTE | 2020-08-23 12:18 | NUR ---
SCHEDULED MEDICATIONS DUE GIVEN. WILL CONTINUE TO MONITOR.
[2020-08-23] MEDS ORDERED: HYDROCORTISONE NA SUCC 100 MG/2 ML VIAL IV SCH (16:25)
--- NOTE | 2020-08-23 17:13 | NUR ---
SCHEDULED MEDICATIONS DUE GIVEN. WILL CONTINUE TO MONITOR.
--- NOTE | 2020-08-23 18:50 | NUR ---
PATIENT HAD A LARGE BM, CLEANED PATIENT UP. PATIENT TOLERATED WELL. WILL CONTINUE TO MONITOR.
--- NOTE | 2020-08-23 19:20 | NUR ---
RECEIVED PATIENT FROM AM SHIFT NURSE FOR CONTINUITY OF CARE. ABLE TO MAKE NEEDS KNOWN. RESPIRATIONS EVEN, UNLABORED. SKIN WARM, DRY. RIGHT UPPER ARM MIDLINE NOTED, INFUSING LEVOPHED 1 MCG/MIN. LEFT THIGH HD ACCESS NOTED, DRESSING CLEAN/DRY AND INTACT. LEFT UPPER ARM HD ACCESS NOTED, DRESSING CLEAN, DRY AND INTACT. NO C/O PAIN. NO S/S ACUTE DISTRESS. ABDOMEN SOFT, NONTENDER, NONDISTENDED. BOWEL SOUNDS ACTIVE X4 QUADRANTS. PATIENT IS INCONTINENT OF B/B. PLAN OF CARE DISCUSSED. CALL LIGHT WITHIN REACH AT ALL TIMES. SAFETY PRECAUTIONS IN PLACE.
[2020-08-23] MEDS: NOREPINEPHRINE 4 MG in DEXTROSE 5% 250 ML IV PRN (21:21)
--- NOTE | 2020-08-23 21:55 | NUR ---
DUE MEDS GIVEN. PATIENT HAD A LARGE BM. NO S/S ACUTE DISTRESS. CALL LIGHT WITHIN REACH. SAFETY PRECAUTIONS IN PLACE.
[2020-08-23] MEDS: INSULIN LISPRO SLIDING SCALE 100 UNITS/ML VIAL SUBQ PRN (22:16)
[2020-08-24] VITALS (24 sets, daily range): BP systolic 72–145; BP diastolic 37–84
[2020-08-24] MEDS: Z-GUARD PASTE TP SCH ×2 (00:06→14:04)
[2020-08-24] MEDS: MIDODRINE 5 MG TAB PO SCH ×3 (06:00→18:25)
[2020-08-24 06:36] LABS: BASOPHILS % (AUTO) 0.8 % (0.0-2.0); EOSINOPHILS % (AUTO) 0.6 % (0.0-4.0); HEMOGLOBIN 7.5 g/dL (12.0-18.0); LYMPHOCYTES # (AUTO) 1.2 K/uL (2.0-11.5); LYMPHOCYTES % (AUTO) 19.9 % (20.5-51.1); MEAN CORPUSCULAR HEMOGLOBIN 32 pg (27-31); MEAN CORPUSCULAR HGB CONC 33 g/dL (33-37); MEAN CORPUSCULAR VOLUME 98.5 fL (80-94); MONOCYTES # (AUTO) 0.3 K/uL (0.8-1.0); MONOCYTES % (AUTO) 5.3 % (1.7-9.3); NEUTROPHILS # (AUTO) 4.5 K/uL (1.8-7.7); NEUTROPHILS % (AUTO) 73.4 % (42.2-75.2); PLATELET COUNT (AUTO) 107 K/uL (140-450); RED BLOOD CELL COUNT(AUTO) 2.33 MIL/uL (4.20-6.10); RED CELL DISTRIBUTION WIDTH 17.8 % (11.6-13.7); WHITE BLOOD COUNT (AUTO) 6.1 K/uL (4.8-10.8)
[2020-08-24] MEDS: BLOOD GLUCOSE MONITORING 1 DEV DEV FS SCH ×4 (07:09→22:00)
--- NOTE | 2020-08-24 07:20 | NUR ---
ENDORSED PATIENT TO AM SHIFT NURSE FOR CONTINUITY OF CARE.
[2020-08-24] MEDS: ASPIRIN 81 MG TAB.CHEW PO SCH (08:25)
[2020-08-24] MEDS: levETIRAcetam 500 MG TAB PO SCH ×3 (08:25→22:27)
[2020-08-24] MEDS: PANTOPRAZOLE 40 MG TABEC PO SCH (08:25)
[2020-08-24 08:55] LABS: ANION GAP 19.6 (8-16); CARBON DIOXIDE 18.4 mmol/L (21-32)
[2020-08-24 11:40] LABS: CREATININE 9.2 mg/dL (0.6-1.3)
--- NOTE | 2020-08-24 12:37 | NUR ---
1140: RECEIVED A CALL FROM Gema, INFORMING ME OF CRITICAL LAB CREA 9.2. DR. HENRY MADE AWARE.
[2020-08-24] MEDS ORDERED: HYDROCORTISONE 10 MG TAB PO SCH (14:00)
[2020-08-24] MEDS: NOREPINEPHRINE 4 MG in DEXTROSE 5% 250 ML IV PRN (18:23)
[2020-08-24] MEDS: HYDROCORTISONE 10 MG TAB PO SCH ×2 (21:00→22:27)
[2020-08-25] VITALS (12 sets, daily range): BP systolic 76–136; BP diastolic 22–81
[2020-08-25] MEDS: Z-GUARD PASTE TP SCH ×2 (01:00→13:02)
[2020-08-25] MEDS: MIDODRINE 5 MG TAB PO SCH ×4 (01:35→12:30)
[2020-08-25] MEDS: HYDROcodone/APAP 5/325 MG 1 TAB TAB PO PRN (01:48)
[2020-08-25 06:39] LABS: ANION GAP 16.8 (8-16); CARBON DIOXIDE 26.2 mmol/L (21-32)
[2020-08-25] MEDS: HYDROCORTISONE 10 MG TAB PO SCH (08:50)
[2020-08-25] MEDS: levETIRAcetam 500 MG TAB PO SCH (08:50)
[2020-08-25] MEDS: PANTOPRAZOLE 40 MG TABEC PO SCH (08:50)
[2020-08-25] MEDS: ASPIRIN 81 MG TAB.CHEW PO SCH (08:51)
[2020-08-25 10:30] LABS: CREATININE 5.4 mg/dL (0.6-1.3)
[2020-08-25] MEDS: BLOOD GLUCOSE MONITORING 1 DEV DEV FS SCH (12:00)
[2020-08-25] MEDS ORDERED: PRO5 PO (12:52)
[2020-08-25] MEDS ORDERED: HYDR-3926 PO (12:52)
--- NOTE | 2020-08-25 15:00 | NUR ---
PICC LINE REMOVED, CATH INTACT, NO REDNESS, SWELLING OR DRAINAGE NOTED FROM SITE.
--- NOTE | 2020-08-25 15:00 | NUR ---
08/25/20 RD FOLLOW UP COMPLETED PLEASE REFER TO NUTRITION ASSESSMENT UNDER CARE ACTIVITY FOR ESTIMATED NUTRITIONAL NEEDS. 1. RECOMMEND MECHANICAL SOFT CCHO RENAL 70 GM PROTEIN DIET TOLERATED 2. RD TO FOLLOW-UP 3-5 DAYS, MODERATE RISK ASHER HERNÁNDEZ, RD
--- NOTE | 2020-08-25 16:46 | NUR ---
INCONTINENT CARE PROVIDED, NEW DRESSING PLACED ON DIALYSIS CATH, NO REDNESS OR DRAINAGE NOTED TO SITE. PT TAKEN TO FAMILY CAR VIA WHEEL CHAIR. PT TRANSFERRED TO FAMILY VEHICLE WITH FAMILY ASSISTANCE. ALL PT BELONGINGS SENT WITH PATIENT.
== END 2020-08-25 16:49 | disposition home or self-care (01) | DRG 720 ==
LOC: MED 14:54 → MMU 22:19
PROVIDERS: ADMIT Hospitalist; ATTEND Hospitalist
PROC: 5A1D70Z Performance of Urinary Filtration, Intermittent, Less than 6 Hours Per Day (ICD-10-PCS; 2020-08-16)
PROC: 02HV33Z Insertion of Infusion Device into Superior Vena Cava, Percutaneous Approach (ICD-10-PCS; 2020-08-16)
PROC: B548ZZA Ultrasonography of Superior Vena Cava, Guidance (ICD-10-PCS; 2020-08-16)
PROC: 5A1D70Z Performance of Urinary Filtration, Intermittent, Less than 6 Hours Per Day (ICD-10-PCS; 2020-08-18)
PROC: 5A1D70Z Performance of Urinary Filtration, Intermittent, Less than 6 Hours Per Day (ICD-10-PCS; 2020-08-21)
PROC: 5A1D70Z Performance of Urinary Filtration, Intermittent, Less than 6 Hours Per Day (ICD-10-PCS; principal; 2020-08-24)
DX: A41.9 Sepsis, unspecified organism (principal); E27.40 Unspecified adrenocortical insufficiency; N39.0 Urinary tract infection, site not specified; N18.6 End stage renal disease; E11.22 Type 2 diabetes mellitus with diabetic chronic kidney disease; E11.51 Type 2 diabetes mellitus with diabetic peripheral angiopathy without gangrene; Z89.512 Acquired absence of left leg below knee; Z89.611 Acquired absence of right leg above knee; H91.90 Unspecified hearing loss, unspecified ear; Z99.2 Dependence on renal dialysis; Z20.822 Contact with and (suspected) exposure to COVID-19; D64.9 Anemia, unspecified; R65.21 Severe sepsis with septic shock
CPT/HCPCS: 36415; 71045; 80048; 80053; 80202; 82533; 82948; 83735; 83880; 84100; 84484; 85025; 85610; 87040; 87081; 87804; 90935; 93005; 96374; 99291; J0696; J1200; J1644; J1720; J2270; J2405; J2543; J3370; J3490; J7030; J7060